=== PATIENT | male | born 1935 | race Caucasian/White ===

== ENCOUNTER 2017-05-22 12:13 | Inpatient (IN) | payer OTHER, MEDICARE ==
--- NOTE | 2017-05-22 14:51 | EDPHY ---
H & P Stated Complaint: r hip pain nontraumatic/hx hip replacement years ago - Personal History Current Tetanus/Diphtheria Vaccine: Yes - Medical/Surgical History Hx Asthma: No Hx Chronic Respiratory Disease: No Hx Diabetes: No Hx Cardiac Disease: No Hx Renal Disease: No Hx Cirrhosis: No Hx Alcoholism: No Hx HIV/AIDS: No Hx Splenectomy or Spleen Trauma: No Other PMH: Parkinsons, bilat hip replacement - Social History Smoking Status: Former smoker Time Seen by Provider: 05/22/17 14:38 HPI/ROS: CHIEF COMPLAINT: Right hip pain x5 days HISTORY OF PRESENT ILLNESS: 81-year-old male history of bilateral hip arthroplasty 20 years ago, lives with his in a multilevel farm house, arrives via private vehicle complaining of progressive right hip pain for the past 5 days. Progressive difficulty weight-bearing and perform activities of daily living. Pain is exacerbated with weight-bearing and range of motion. No trauma. He necessitated multiple family members to help him out of the house into a vehicle today. No lower extremity radiculopathy. No saddle anesthesia He denies: Fever, chills, flu-like symptoms, discoloration to the area. PRIMARY CARE PROVIDER:Dr. 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 Parkinson's disease SOCIAL HISTORY: Lives with his in a multilevel are mouth PHYSICAL EXAM (Prior to examination, patient consented to physical exam, hands were washed and my usual and customary physical exam procedures followed) 1) GENERAL: Well-developed, well-nourished, alert and oriented. Appears to be in no acute distress. 2) HEAD: Normocephalic, atraumatic 3) HEENT: Sclera anicteric. 4) NECK: Full range of motion, no meningeal signs. 5) LUNGS: Clear auscultation bilaterally, no wheezes, no rhonchi, no retractions. 6) HEART: Regular rate and rhythm, no murmur, no heave, no gallop. 7) ABDOMEN: No guarding, no rebound, no focal tenderness, 8) MUSCULOSKELETAL: Right lower extremity: Surgical site noted, no tenderness to palpation. Reproducible pain to the right inguinal region with range of motion of the femur on the acetabulum. No fluctuance. 9) BACK: No midline vertebral tenderness, no fluctuance, no step-off, no obvious trauma, no visual or palpable abnormality. Patella Achilles reflexes intact to bilateral strength 5/5. No foot drop. 10) SKIN: No rash, no petechiae. 11) Psychiatric: Patient is oriented X 3, there is no agitation. DIFFERENTIAL DIAGNOSIS: In no particular order including but not limited to septic arthritis, arthroplasty hardware failure, periprosthetic fracture (Yodit,Sheri Shruti) Constitutional: Initial Vital Signs Temperature (C) 36.3 C 05/22/17 12:20 Heart Rate 84 05/22/17 12:20 Respiratory Rate 18 05/22/17 12:20 Blood Pressure 139/112 H 05/22/17 12:20 O2 Sat (%) 95 05/22/17 12:20 O2 Delivery Mode Room Air Allergies/Adverse Reactions: No Known Allergies Allergy (Verified 05/22/17 12:19) Home Medications: Medication Instructions Recorded Carbidopa/Levodopa 25/100Mg 1 tab PO DAILY@2300 03/19/14 [Sinemet 25/100 MG (*)] Carbidopa/Levodopa 25/100Mg 1.5 tab PO BID@0700,1400 03/19/14 [Sinemet 25/100 MG (*)] Hydrocodone/APAP 5/325 [[place] 0.5 tab PO Q6 PRN #10 tab 05/22/17 5/325 (*)] Medical Decision Making - Diagnostics Imaging Results: Imaging Impressions Hip X-Ray 05/22/17 14:39 Impression: Negative. No acute fracture or dislocation. ED Course/Re-evaluation: 3:45 p.m.: The case management director and I had a lengthy discussion with the patient and his family members regarding safety to be discharged home. Patient lives with his at initially requested to be discharged home. He necessitated to ER technicians to get sit on the edge of the bed. At that point he agrees to be admitted the hospital which I think is appropriate decision time concerned about his ability to perform activities of daily living, concerned about his safety where he had to be discharged. Plan will be admission . 4:00 p.m.: Consulted with hospitalist Dr. Rosas who will admit patient. Care of patient under supervision of secondary supervising physician Dr Pat with whom I discussed case . (Sheri Monsivais) Other Provider: PHYSICIAN DOCUMENTATION: The patient was evaluated and managed by the Physician Credit Assistant and myself. I have reviewed the chart and agree with the findings and plan of care as documented. In addition, I examined the patient myself at 1612. History confirmed as nontraumatic worsening right hip pain unable to walk. Physical findings as follows: Able to lift right leg off the bed, normal motor and sensory in both feet, normal perfusion both the feet. Admission for further evaluation is unable to walk. I am the secondary supervising physician. (Ezio Pat) Departure - Departure Disposition: [facility] Inpatient Acute Clinical Impression: Atraumatic right hip pain, Unable to care for self Condition: Good
--- NOTE | 2017-05-22 16:18 | ASMTCMCOM ---
CM Note CM Note Notes: I was asked by ED DENISE Monsivais to see patient and his family. Patient came in with hip pain, also has a hx of Parkinson's. His xray was unremarkable, but there is concern about whether patient can be safe at home (lives in a farmhouse with 13 stairs). After much deliberation with patient, , and sister, we determined that patient needs admission for further workup and safety eval. Although he did have appointments with his PCP Dr Liseth Lee and neurologist Dr Marilee Wesley tomorrow, as well as a PT appointment, his pain was prohibiting him from ambulating in the ED. I called both doctors and cancelled the appointments. Patient's will go home to get him some belongings and medications. Date Signed: 05/22/2017 04:17 PM Electronically Signed By:Katherin Trejo RN
--- NOTE | 2017-05-22 16:19 | ASMTLACE ---
[place] Acuity / Level of Answers: Yes Care: Did the patient have an inpatient admission? # of Emergency department Answers: 0 visits in the last 6 months Score: 3 Date Signed: 05/22/2017 04:18 PM Electronically Signed By:Katherin Trejo RN
[2017-05-22 16:24] LABS: PLATELET COUNT 133 10^3/uL (150-400)
[2017-05-22] MEDS ORDERED: ONDANSETRON 4 MG/2 ML VIAL IVP PRN (17:20)
[2017-05-22] MEDS ORDERED: ONDANSETRON DISINTEGRATING 4 MG TAB PO PRN (17:20)
--- NOTE | 2017-05-22 17:27 | PDGENHP ---
History and Physical - Chief Complaint Right hip pain - History of Present Illness 81-year-old male history of bilateral hip arthroplasty 20 years ago, p/w 5 day hx of right sided hip pain. He recently worked with PT and family is wondering if this would have aggravated it. He has difficulty weight-bearing and perform activities of daily living. Pain is exacerbated with weight-bearing and range of motion. No trauma. He necessitated multiple family members to help him out of the house into a vehicle today. No lower extremity radiculopathy. No saddle anesthesia He denies: Fever, chills, flu-like symptoms, discoloration to the area. 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 Parkinson's disease SOCIAL HISTORY: Lives with his in a [facility] FmHx: [place] History Information - Allergies/Home Medication List Allergies/Adverse Reactions: No Known Allergies Allergy (Verified 05/22/17 12:19) Home Medications: Carbidopa/Levodopa 25/100Mg [Sinemet 25/100 MG (*)] 1 tab PO DAILY@2300 [Last Taken Unknown] Carbidopa/Levodopa 25/100Mg [Sinemet 25/100 MG (*)] 1.5 tab PO BID@0700,1400 [Last Taken Unknown] I have personally reviewed and updated: medical history, social history - Social History Smoking Status: Former smoker Review of Systems Review of Systems: ROS: 10pt was reviewed & negative except for what was stated in HPI & below Physical Exam Physical Exam: Temp Pulse Resp BP Pulse Ox 36.3 C 66 16 147/81 H 95 05/22/17 12:20 05/22/17 16:43 05/22/17 16:43 05/22/17 16:43 05/22/17 16:43 Constitutional: no apparent distress Eyes: PERRL, EOMI Ears, Nose, Mouth, Throat: moist mucous membranes Cardiovascular: regular rate and rhythym Respiratory: no respiratory distress, no rales or rhonchi Gastrointestinal: normoactive bowel sounds, soft, non-tender abdomen Skin: warm Musculoskeletal: full muscle strength Neurologic: AAOx3 Psychiatric: interacting appropriately, not anxious, not encephalopathic Lymph, Heme, Immunologic: No petechiae Lab Data & Imaging Review 05/22/17 16:05 05/22/17 16:05 WBC 5.04 10^3/uL (3.80-9.50) 05/22/17 16:05 RBC 5.04 10^6/uL (4.40-6.38) 05/22/17 16:05 Hgb 15.2 g/dL (13.7-17.5) 05/22/17 16:05 Hct 43.0 % (40.0-51.0) 05/22/17 16:05 MCV 85.3 fL (81.5-99.8) 05/22/17 16:05 MCH 30.2 pg (27.9-34.1) 05/22/17 16:05 MCHC 35.3 g/dL (32.4-36.7) 05/22/17 16:05 RDW 13.6 % (11.5-15.2) 05/22/17 16:05 Plt Count 133 10^3/uL (150-400) L 05/22/17 16:05 MPV 9.0 fL (8.7-11.7) 05/22/17 16:05 Neut % (Auto) 72.0 % (39.3-74.2) 05/22/17 16:05 Lymph % (Auto) 16.1 % (15.0-45.0) 05/22/17 16:05 Grayson % (Auto) 8.9 % (4.5-13.0) 05/22/17 16:05 Eos % (Auto) 2.0 % (0.6-7.6) 05/22/17 16:05 Baso % (Auto) 0.4 % (0.3-1.7) 05/22/17 16:05 Nucleat RBC Rel Count 0.0 % (0.0-0.2) 05/22/17 16:05 Absolute Neuts (auto) 3.63 10^3/uL (1.70-6.50) 05/22/17 16:05 Absolute Lymphs (auto) 0.81 10^3/uL (1.00-3.00) L 05/22/17 16:05 Absolute Monos (auto) 0.45 10^3/uL (0.30-0.80) 05/22/17 16:05 Absolute Eos (auto) 0.10 10^3/uL (0.03-0.40) 05/22/17 16:05 Absolute Basos (auto) 0.02 10^3/uL (0.02-0.10) 05/22/17 16:05 Absolute Nucleated RBC 0.00 10^3/uL (0-0.01) 05/22/17 16:05 Immature Gran % 0.6 % (0.0-1.1) 05/22/17 16:05 Immature Gran # 0.03 10^3/uL (0.00-0.10) 05/22/17 16:05 Sodium 138 mEq/L (135-145) 05/22/17 16:05 Potassium 4.1 mEq/L (3.5-5.2) 05/22/17 16:05 Chloride 104 mEq/L (97-110) 05/22/17 16:05 Carbon Dioxide 27 mEq/l (22-31) 05/22/17 16:05 Anion Gap 7 mEq/L (8-16) L 05/22/17 16:05 BUN 16 mg/dL (7-23) 05/22/17 16:05 Creatinine 0.9 mg/dL (0.7-1.3) 05/22/17 16:05 Estimated GFR > 60 05/22/17 16:05 Glucose 77 mg/dL (70-100) 05/22/17 16:05 Calcium 9.0 mg/dL (8.5-10.4) 05/22/17 16:05 Assessment & Plan Assessment: #Right hip pain, hx of bilateral Arthroplasty 20 years ago #FTT #Acute pain syndrome #Parkinsons #GERD #Hx of L DVT, previously on Xarelto Plan: Admit Check MRI PT/OT Check US of LLE to r/o DVT Trial of PPI for reported GERD sx's check nutrition CM to see Lovenox for DVT proph Full Code Home meds/Parkinson meds once a list is available
[2017-05-22] MEDS ORDERED: IBUPROFEN 200 MG TAB PO PRN (17:52)
[2017-05-22] MEDS: PANTOPRAZOLE SODIUM 40 MG TAB PO SCH (18:53)
[2017-05-22] MEDS: CARBIDOPA/LEVO CR 25 MG/100 MG TAB PO SCH ×2 (18:54→21:54)
[2017-05-23 04:30] LABS: PLATELET COUNT 124 10^3/uL (150-400)
[2017-05-23] MEDS: CARBIDOPA/LEVO CR 25 MG/100 MG TAB PO SCH ×4 (10:05→21:47)
[2017-05-23] MEDS: PANTOPRAZOLE SODIUM 40 MG TAB PO SCH (10:05)
[2017-05-23] MEDS: ACETAMINOPHEN 325 MG TAB PO PRN ×2 (10:15→21:56)
[2017-05-23] MEDS: ENOXAPARIN 40 MG/0.4 ML SYR SC SCH (10:18)
--- NOTE | 2017-05-23 13:33 | ASMTCMCOM ---
CM Note CM Note Notes: Chart reviewed for dc planning purposes. Therapies are recommending SNF. Met with patient to discussed possiblity of SNF . He adamantly refuses at this point in time. Hoping to meet with his family at some point today. Lives with his and daughter. CM to follow. Date Signed: 05/23/2017 01:32 PM Electronically Signed By:Hilary Rodas RN
--- NOTE | 2017-05-23 13:44 | PDMN ---
Medical Necessity Medical necessity: Pt meets IP criteria per MD; est los >2 mn for eval/tx of R- sided hip pain w/failure to thrive; pt unable to care for self; admit for further monitoring, therapies & dc planning; comorbid advanced age & Parkinsons ; per H&P & order 05/22/17
--- NOTE | 2017-05-23 15:25 | HOSPPROG ---
Hospitalist Progress Note Assessment/Plan: #Right hip pain: suspect musk in nature. Effusion on MRI, but no signs/symptoms of infection. Treat pain with APAP. Discussed case with Pamela Owens ( Master's PA) who recommended conservative treatment -PT evaluated and rec SNF. Patient is declining, will readdress with family #Parkinson's: Carbidopa #Diet: regular #Disp: warrants inpatient admission for further PT/OT Subjective: pain in right hip. No fevers Objective: Vital Signs Temp Pulse Resp BP Pulse Ox 36.5 C 88 17 123/86 H 94 05/23/17 12:37 05/23/17 12:37 05/23/17 12:37 05/23/17 12:37 05/23/17 12:37 Laboratory Results 05/23/17 04:10 05/23/17 04:10 05/22/17 05/23/17 05/24/17 05:59 05:59 05:59 Intake Total 250 Balance 250 - Physical Exam Constitutional: no apparent distress Eyes: PERRL Ears, Nose, Mouth, Throat: moist mucous membranes Cardiovascular: regular rate and rhythym, no murmur, rub, or gallop Respiratory: no respiratory distress, no rales or rhonchi Gastrointestinal: normoactive bowel sounds, soft, non-tender abdomen Genitourinary: no bladder fullness Musculoskeletal: other (right hip with mild effusion. No warmth or redness. Full ROM, no pain with external/internal rotation) Neurologic: AAOx3, CN II-XII Intact Psychiatric: interacting appropriately ICD10 Worksheet Patient Problems: Problems Problem Status Onset Influenza A Acute
[2017-05-24] MEDS: CARBIDOPA/LEVO CR 25 MG/100 MG TAB PO SCH ×4 (08:27→21:58)
[2017-05-24] MEDS: PANTOPRAZOLE SODIUM 40 MG TAB PO SCH (08:27)
[2017-05-24] MEDS: ENOXAPARIN 40 MG/0.4 ML SYR SC SCH (08:27)
[2017-05-24] MEDS: ACETAMINOPHEN 325 MG TAB PO PRN ×2 (09:04→21:59)
[2017-05-24] MEDS: LIDOCAINE 4%/MENTHOL 1% PATCH TD SCH (11:24)
--- NOTE | 2017-05-24 12:45 | HOSPPROG ---
Hospitalist Progress Note Assessment/Plan: 81-year-old admitted with hip pain. There is no obvious injury it was just increased pain to a point where he was unable to ambulate at home and was brought into the ER for further evaluation. He does have a history of Parkinson 's disease and has started doing more physical therapy for that recently. MRI was done on admission that showed no obvious injury he has had a previous hip arthroplasty and a moderate effusion present # hip pain. MRI reviewed. Unclear etiology of his pain and less it is purely just inflammation. No obvious signs of infection, he has a normal white count no fevers and does not appear ill. * Continue physical therapy, patient refusing skilled rehab * reviewed MRI with Dr. Owens. 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 (the plastic wears out and causes an inflammatory reaction.) rec: follow up with a total joint surgeon. # Parkinson's disease: Primarily symptoms include dysphagia and dysarthria and fatigue and stiffness without a lot of tremor. * Continue current therapy Disposition: Patient will go home with either home care or outpatient PT, they have recommended skilled rehab but the patient is refusing Subjective: Patient new to me and chart reviewed. Spent greater than 35 min with family greater than 50% counseling discussing patient's course. He currently complains of ongoing hip pain it is unclear if it is better or not although he says he is able to ambulate better than when he 1st came to the hospital. Objective: Vital Signs Temp Pulse Resp BP Pulse Ox 35.7 C L 70 16 136/88 H 94 05/24/17 11:13 05/24/17 11:13 05/24/17 11:13 05/24/17 11:13 05/24/17 11:13 Laboratory Results 05/23/17 04:10 05/24/17 04:42 05/23/17 05/24/17 05/25/17 05:59 05:59 05:59 Intake Total 250 1900 Output Total 1250 Balance 250 650 - Physical Exam Constitutional: no apparent distress, chronically ill appearing Eyes: PERRL Ears, Nose, Mouth, Throat: moist mucous membranes Cardiovascular: regular rate and rhythym Respiratory: no respiratory distress Gastrointestinal: normoactive bowel sounds Genitourinary: other (Condom cath) Skin: warm Musculoskeletal: pain with ROM (Hip), generalized weakness, No joint tenderness Neurologic: AAOx3, No facial droop Psychiatric: interacting appropriately ICD10 Worksheet Patient Problems: Problems Problem Status Onset Influenza A Acute
--- NOTE | 2017-05-24 16:44 | ASMTCMCOM ---
CM Note CM Note Notes: would like Varghese to meet with Pt. and family today to discuss Pt's plan for d/c. As of yesterday, Pt. wanted to go home without rehab or home care services. PT and OT recommending SNF. Today Varghese met with Pt, , and friend in room. came in for part of meeting. After our discussion of options and Pt's wishes, Pt. called Jhonyr back into room and agreed to have homecare PT and OT. Pt. would like Parkinson's-specific home PT and OT. Pt. is very involved in the Parkinson's community and goes to a regular support group. Referred Pt. to [facility] due to their Parkinson's program. Mini at [facility] plans to take Pt. Referral made through [employer]. Also printed out information for Pt. on [employer] who is a leading local Parkinson's exercise guru who himself has Parkinsons. Plan: [facility] homecare with PT and OT focusing on Parkinson's exercises per Pt. Date Signed: 05/24/2017 04:44 PM Electronically Signed By:Noy Woods LCSW
[2017-05-24] MEDS: PATCH REMOVAL 1 EA PATCH TD SCH (22:00)
[2017-05-25] MEDS: ACETAMINOPHEN 325 MG TAB PO PRN ×2 (08:35→21:54)
[2017-05-25] MEDS: ENOXAPARIN 40 MG/0.4 ML SYR SC SCH (08:35)
[2017-05-25] MEDS: CARBIDOPA/LEVO CR 25 MG/100 MG TAB PO SCH ×4 (08:35→22:55)
[2017-05-25] MEDS: LIDOCAINE 4%/MENTHOL 1% PATCH TD SCH (08:35)
[2017-05-25] MEDS: PANTOPRAZOLE SODIUM 40 MG TAB PO SCH (08:35)
--- NOTE | 2017-05-25 12:31 | HOSPPROG ---
Hospitalist Progress Note Assessment/Plan: 81-year-old admitted with hip pain. There is no obvious injury it was just increased pain to a point where he was unable to ambulate at home and was brought into the ER for further evaluation. He does have a history of Parkinson 's disease and has started doing more physical therapy for that recently. MRI was done on admission that showed no obvious injury he has had a previous hip arthroplasty and a moderate effusion present # hip pain. MRI reviewed MRI with Dr. Owens. 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 (the plastic wears out and causes an inflammatory reaction.) rec: follow up with a total joint surgeon. * Continue to discuss possible skilled rehab * Will add low-dose Vicodin and Celebrex today if renal function normal * High risk for steroid injection into a total joint # Parkinson's disease: Primarily symptoms include dysphagia and dysarthria and fatigue and stiffness without a lot of tremor. * Continue current therapy Disposition: Patient now considering skilled rehab at the request of his family Subjective: Pain mainly when he is ambulating, comfortable at rest Objective: Vital Signs Temp Pulse Resp BP Pulse Ox 36.4 C 72 16 127/85 H 95 05/25/17 11:45 05/25/17 11:45 05/25/17 11:45 05/25/17 11:45 05/25/17 11:45 Laboratory Results 05/23/17 04:10 05/24/17 04:42 05/24/17 05/25/17 05/26/17 05:59 05:59 05:59 Intake Total 1900 450 Output Total 1250 900 Balance 650 -450 - Time Spent With Patient Time Spent with Patient: greater than 35 minutes (Discussed treatment options with family and patient) Time Spent with Patient: Greater than 35 minutes spent on this patients care, greater than 50% of time spent counseling, educating, and coordinating care regarding the above mentioned plan. - Physical Exam Constitutional: chronically ill appearing Psychiatric: interacting appropriately, not anxious ICD10 Worksheet Patient Problems: Problems Problem Status Onset Influenza A Acute
[2017-05-25] MEDS ORDERED: HYDROCODONE/APAP 5/325 TAB PO PRN (12:32)
--- NOTE | 2017-05-25 14:33 | ASMTCMCOM ---
CM Note CM Note Notes: Spoke with MD; pt now interested in discharging to SNF; anticipate dc tomorrow. Met with pt & his family to discuss. Pt states he would like to go to [facility]; he has been there before & takes outpatient Parkinson's classes there currently. Spoke with Soniya, at [facility]; may have bed available tomorrow. Referral sent; awaiting response. CM will continue to follow. Date Signed: 05/25/2017 02:32 PM Electronically Signed By:Jacqueline Edge RN
[2017-05-25] MEDS: KETOROLAC 15 MG/1 ML SDV IVP SCH (18:23)
[2017-05-25] MEDS: PATCH REMOVAL 1 EA PATCH TD SCH (22:05)
[2017-05-26] MEDS: KETOROLAC 15 MG/1 ML SDV IVP SCH ×3 (01:56→12:56)
[2017-05-26 04:54] LABS: PLATELET COUNT 142 10^3/uL (150-400)
[2017-05-26] MEDS: PANTOPRAZOLE SODIUM 40 MG TAB PO SCH (09:58)
[2017-05-26] MEDS: ENOXAPARIN 40 MG/0.4 ML SYR SC SCH (09:58)
[2017-05-26] MEDS: CARBIDOPA/LEVO CR 25 MG/100 MG TAB PO SCH ×2 (09:58→12:56)
[2017-05-26] MEDS: LIDOCAINE 4%/MENTHOL 1% PATCH TD SCH (09:58)
--- NOTE | 2017-05-26 10:24 | PDIAF ---
- Diagnosis Code Status: Full Code - Medication Management Discharge Medications: Medications to Continue on Transfer Carbidopa/Levo Cr 25/100Mg [Sinemet CR 25/100 MG (*)] 2 tab PO QID@08,13,19,23 05/22/17 [Last Taken 05/22/17 13:00] Acetaminophen [Tylenol 325mg (*)] 650 mg PO Q4HRS PRN tab 05/26/17 [Last Taken Unknown] Lidocaine 4%/Menthol 1% [Icy Hot Lidocaine/Menthol 4%/1% Patch (*)] 1 patch TD DAILY patch 05/26/17 [Last Taken Unknown] Pantoprazole Sodium [Protonix 40mg (*)] 40 mg PO DAILY tab 05/26/17 [Last Taken Unknown] Patch Removal 1 ea TD DAILY21 patch 05/26/17 [Last Taken Unknown] celeCOXIB [Celecoxib] 200 mg PO DAILY #1 capsule 05/26/17 [Last Taken Unknown] Discharge Medications: Refer to the Discharge Home Medication list for PRN reason. - Orders Services needed: Registered Nurse, Certified Emanations Analysis Technician, Master Mixer Runner , Physical Therapy, Occupational Therapy Isolation Type: None Diet Recommendation: no restrictions on diet Diet Texture: Regular Texture Diet - Labs/Radiology BMP Date: 06/02/17 - Follow Up Care Current Providers and Referrals: Liseth Lee MD [Primary Care Provider] -
--- NOTE | 2017-05-26 10:36 | ASMTCMCOM ---
CM Note CM Note Notes: Patient medically cleared for discharge to [facility] in [place]. He will have a semi-private room and be on the waitlist for a private room. His is aware. [facility] to arrange transport. Final orders via allscripts. Awaiting transport time and will alert RN and ask her to call report. CM available if other needs arise. Date Signed: 05/26/2017 10:35 AM Electronically Signed By:Hilary Rodas RN
--- NOTE | 2017-05-26 10:39 | GDS ---
[f rep st] DISCHARGE SUMMARY DIAGNOSES: 1. 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 Patient to follow up with joint specialist as an outpatient. 2. Parkinson disease, stable. 3. Remote history of influenza A. Currently not infectious, nor has he had it recently. 4. Deconditioning. PROCEDURES DONE: 1. Lower extremity ultrasound, negative for DVT. 2. 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 CONSULTATIONS: None. HOSPITAL COURSE: The patient is an 81-year-old man with a history of Parkinson disease. He was part icipating in physical therapy. He had increasing pain in his right hip. He was to a point where the pain was so severe he was having more difficulty ambulating, so he was admitted to the hospital due to his disability and increased fall risk. He had an MRI, which revealed bilateral joint replacement s in the hip with moderate effusion on the right, but no evidence of infection. 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 He was started on anti-inflammatories with significant improvement in his pain, but he is decond itioned and will need inpatient rehab. CONDITION ON DISCHARGE: Good. Vital signs have been stable. He is up ambulating. He is alert. DISCHARGE MEDICATIONS: Please see discharge medication form. He will be started on Celebrex for ant i-inflammation but should get a metabolic panel done within a week to make sure he is having no evide nce of kidney issues. He needs to stay hydrated. FOLLOWUP INSTRUCTIONS: He will be discharged to [facility] for physical therapy and rehab , and he and his family will make an appointment with an orthopedist as an outpatient. Total time spent with patient on day of discharge and coordination of care is 35 minutes. /[id number]/MODL
[2017-05-26 15:16] VITALS: RESP 18
[2017-05-26 16:21] VITALS: BP 129/89; PULSE 97; TEMP 98.9; O2SAT 94
--- NOTE | 2017-05-26 17:05 | ASDISCHSUM ---
Discharge Information Plan Status:SNF Medically Cleared to Leave:05/25/2017 Discharge Date:05/26/2017 04:32 PM D/C Disposition:Care Home Facility ADT D/C Disposition:Care Home Facility Projected Discharge Date:05/26/2017 11:00 AM Transportation at D/C:Wheelchair Van Discharge Delay Reason: Follow-Up Date:05/26/2017 11:00 AM Discharge Slot: Final Diagnosis: Placement Information Referral Type:*Home Health Care Services Referral ID:[id number] Provider Name: Address 1: Phone Number: Address 2: Fax Number: City: Selection Factors: State: Referral Type:*Mcfp/SNF Referral ID:[id number] Provider Name:[facility] Address 1:[facility] Address 2: City:[place] Selection Factors: State:[place] Patient Contact Information Contact Name:MARLENEMARLIN Relationship: Address:[address] Work Phone: City:[place] Alternate Phone: State/Zip Code:[place] [address] Email: Financial Information Financial Class:Medicare Primary Plan Desc:MEDICARE INPATIENT Primary Plan Number:[id number] Secondary Plan Desc:AARP/MDR SUPPLEMENT Secondary Plan Number:[id number] Assessment Information [facility] CM Progress Note CM Note CM Note Notes: I was asked by ED DENISE Monsivais to see patient and his family. Patient came in with hip pain, also has a hx of Parkinson's. His xray was unremarkable, but there is concern about whether patient can be safe at home (lives in a farmhouse with 13 stairs). After much deliberation with patient, , and sister, we determined that patient needs admission for further workup and safety eval. Although he did have appointments with his PCP Dr Liseth Lee and neurologist Dr Marilee Wesley tomorrow, as well as a PT appointment, his pain was prohibiting him from ambulating in the ED. I called both doctors and cancelled the appointments. Patient's will go home to get him some belongings and medications. Date Signed: 05/22/2017 04:17 PM Electronically Signed By:Katherin Trejo RN LACE LACE Acuity / Level of Answers: Yes Care: Did the patient have an inpatient admission? # of Emergency department Answers: 0 visits in the last 6 months Score: 3 Date Signed: 05/22/2017 04:18 PM Electronically Signed By:Katherin Trejo RN [facility] CM Progress Note CM [place] CM Note Notes: Chart reviewed for dc planning purposes. Therapies are recommending SNF. Met with patient to discussed possiblity of SNF . He adamantly refuses at this point in time. Hoping to meet with his family at some point today. Lives with his and daughter. CM to follow. Date Signed: 05/23/2017 01:32 PM Electronically Signed By:Hilary Rodas RN [facility] CM Progress Note CM Note CM Note Notes: would like SWekaren to meet with Pt. and family today to discuss Pt's plan for d/c. As of yesterday, Pt. wanted to go home without rehab or home care services. PT and OT recommending SNF. Today Varghese met with Pt, , and friend in room. came in for part of meeting. After our discussion of options and Pt's wishes, Pt. called SWer back into room and agreed to have homecare PT and OT. Pt. would like Parkinson's-specific home PT and OT. Pt. is very involved in the Parkinson's community and goes to a regular support group. Referred Pt. to [facility] due to their Parkinson's program. Mini at [facility] plans to take Pt. Referral made through [employer]. Also printed out information for Pt. on [employer] who is a leading local Parkinson's exercise guru who himself has Parkinsons. Plan: [facility] homecare with PT and OT focusing on Parkinson's exercises per Pt. Date Signed: 05/24/2017 04:44 PM Electronically Signed By:Noy Woods LCSW [facility] CM Progress Note CM Note CM Note Notes: Spoke with MD; pt now interested in discharging to SNF; anticipate dc tomorrow. Met with pt & his family to discuss. Pt states he would like to go to [facility]; he has been there before & takes outpatient Parkinson's classes there currently. Spoke with Soniya, at [facility]; may have bed available tomorrow. Referral sent; awaiting response. CM will continue to follow. Date Signed: 05/25/2017 02:32 PM Electronically Signed By:Jacqueline Edge RN [facility] CM Progress Note CM Note CM Note Notes: Patient medically cleared for discharge to [facility] in [place]. He will have a semi-private room and be on the waitlist for a private room. His is aware. [facility] to arrange transport. Final orders via allscripts. Awaiting transport time and will alert RN and ask her to call report. CM available if other needs arise. Date Signed: 05/26/2017 10:35 AM Electronically Signed By:Hilary Rodas RN Intervention Information Intervention Type:*IM-Signed Date of Service:05/26/2017 01:57 PM Patient Type:Inpatient Staff Member:Lauryn Caro Hours: Discipline: Severity: Comment:
== END 2017-05-26 16:32 | DRG 561 ==
LOC: OBSVTOIN 16:00 → F1N 16:43
PROVIDERS: ADMIT Family Medicine; ATTEND Family Medicine
DX: T84.84XA Pain due to internal orthopedic prosthetic devices, implants and grafts, initial encounter (principal); T84.090A Other mechanical complication of internal right hip prosthesis, initial encounter; R62.7 Adult failure to thrive; G89.29 Other chronic pain; G20 Parkinson's disease; M25.451 Effusion, right hip; K21.9 Gastro-esophageal reflux disease without esophagitis; Z86.718 Personal history of other venous thrombosis and embolism; Z79.01 Long term (current) use of anticoagulants
CPT/HCPCS: 84134-90; 97110-GP; 97116-GP; 97162-GP; 97166-GO; 97530-GP; 97535-GO; G8978-GP-CJ; G8979-GP-CI; G8987-GO-CJ; G8988-GO-CI; G8989-GO-CJ; J1650; J1885

== ENCOUNTER 2017-07-13 22:55 | Inpatient (IN) | payer OTHER, MEDICARE ==
--- NOTE | 2017-07-13 23:02 | EDPHY ---
H & P Time Seen by Provider: 07/13/17 23:02 HPI/ROS: Chart Made in Error. Please MANSI WALKER's Chart. Source: Patient - Medical/Surgical History Hx Asthma: No Hx Chronic Respiratory Disease: No Hx Diabetes: No Hx Cardiac Disease: No Hx Renal Disease: No Hx Cirrhosis: No Hx Alcoholism: No Hx HIV/AIDS: No Hx Splenectomy or Spleen Trauma: No Other PMH: Parkinsons, bilat hip replacement - Social History Smoking Status: Former smoker Constitutional: Initial Vital Signs Temperature (C) 36.3 C 07/13/17 23:20 Heart Rate 67 07/13/17 23:20 Respiratory Rate 16 07/13/17 23:20 Blood Pressure 137/88 H 07/13/17 23:20 O2 Sat (%) 94 07/13/17 23:20 O2 Delivery Mode Room Air Allergies/Adverse Reactions: No Known Allergies Allergy (Verified 05/22/17 12:19) Home Medications: Medication Instructions Recorded Carbidopa/Levo Cr 25/100Mg 2 tab PO QID@,,,05/22/17 [Sinemet CR 25/100 MG (*)] Lidocaine 4%/Menthol 1% [Icy Hot 1 patch TD DAILY patch 05/26/17 Lidocaine/Menthol 4%/1% Patch (*)] celeCOXIB [Celecoxib] 200 mg PO DAILY #1 capsule 05/26/17 Cholecalciferol Vit D3 [Vitamin D3 1,000 units PO DAILY 07/14/17 (*)] Cyanocobalamin [Vitamin B12 (*)] 1,000 mcg PO DAILY 07/14/17 Omeprazole 20 mg PO DAILY 07/14/17 Medical Decision Making - Data Points Laboratory Results: Laboratory Results 07/13/17 23:30 07/13/17 23:30 Medications Given: Acetaminophen (Tylenol) 650 mg PO Q4HRS PRN PRN Reason: Pain, Mild/Fever, Can Take PO Stop: 01/10/18 01:45 Last Admin: 07/14/17 20:28 Dose: 650 mg Carbidopa/Levodopa (Sinemet Cr) 2 tab PO QID@,,, ERVIN Stop: 01/10/18 12:59 Last Admin: 07/14/17 23:10 Dose: 2 tab Celecoxib (Celebrex) 200 mg PO DAILY ERVIN Stop: 01/10/18 14:44 Last Admin: 07/14/17 17:42 Dose: 200 mg Enoxaparin Sodium (Lovenox) 40 mg SC DAILY ERVIN Stop: 01/10/18 08:59 Last Admin: 07/14/17 07:58 Dose: 40 mg Sodium Chloride (Ns) 1,000 mls @ 75 mls/hr IV CONT ERVIN Stop: 01/10/18 01:59 Last Admin: 07/14/17 02:10 Dose: 1,000 mls Miscellaneous Information (Patch Removal) 1 ea TD DAILY21 ERVIN Stop: 01/10/18 20:59 Last Admin: 07/14/17 20:29 Dose: 1 ea Miscellaneous Medication (Icy Hot Lidocaine/Menthol 4%/1% Patch) 1 patch TD DAILY ERVIN Stop: 01/10/18 08:59 Last Admin: 07/14/17 07:59 Dose: 1 patch Departure - Departure Disposition: [facility] Inpatient Acute Clinical Impression: Skin tear of left hand without complication, Sprain of right shoulder, Closed right hip fracture Condition: Good
--- NOTE | 2017-07-13 23:28 | CPEKG ---
Heart Rate: 70 RR Interval: 857 P-R Interval: 168 QRSD Interval: 80 QT Interval: 380 QTC Interval: 410 P [place]: 61 QRS [place]: -29 T Wave [place]: 12 EKG Severity - ABNORMAL ECG - EKG Impression: SINUS RHYTHM EKG Impression: PROBABLE INFERIOR INFARCT, AGE INDETERMINATE Electronically Signed By: Ky Choudhury 14-Jul-2017 07:18:38
--- NOTE | 2017-07-13 23:28 | EDPHY ---
H & P Time Seen by Provider: 07/13/17 23:02 HPI/ROS: CHIEF COMPLAINT: Near syncope HISTORY OF PRESENT ILLNESS: 81-year-old male presents to the emergency department by ambulance after having a near syncopal episode. The patient is a [place] and was outside working all day and then came inside his home and walked up a flight of stairs and apparently was feeling lightheaded and dizzy. He had a near syncopal episode. He grabbed the railing of the stairs and then lowered himself to the ground. He sustained injury to his left hand in his right shoulder. He does not think that he lost consciousness. He denies a headache. Denies chest pain or difficulty breathing. He does have a history of Parkinson's disease. He states that his primary care provider has been changing his medications. REVIEW OF SYSTEMS: Constitutional: No fever, no chills. Eyes: No double or blurry vision. ENT: No sore throat. Respiratory: No cough, no shortness of breath. Cardiac: No chest pain. Gastrointestinal: No abdominal pain, vomiting or diarrhea. Genitourinary: No dysuria. Musculoskeletal: No neck or back pain. Skin: Skin tear left hand. No rashes. Neurological: No headache. Past Medical/Surgical History: Parkinson's disease, bilateral hip replacement, chronic hip pain Social History: lives with his independently Smoking Status: Former smoker Physical Exam: General Appearance: Alert, no distress. 137/88 Eyes: Pupils equal and round. Extraocular motions are all intact. ENT: Mouth: Mucous membranes moist. Respiratory: No wheezing, rhonchi, or rales, lungs are clear to auscultation. Cardiovascular: Regular rate and rhythm. Gastrointestinal: Abdomen is soft and nontender, no masses, no rebound or guarding, bowel sounds normal. Neurological: Alert and oriented x 3, cranial nerves II through XII grossly intact Skin: Skin tears noted to the dorsal aspect of his left hand. No suturable lacerations noted. Warm and dry, no rashes. Musculoskeletal: Nontender to palpate along the cervical, thoracic or lumbar spine. Neck is supple. Extremities: The patient is able to flex both of his knees. He is unable to lift his left ribs right leg secondary to his chronic bilateral hip pain. He has no abrasions noted to his lower extremities. He has pain with range of motion of the right shoulder. He has some mild pain with palpation to the right humeral head. He has full range of motion of his hands. Psychiatric: Patient is oriented X 3, there is no agitation. Constitutional: Initial Vital Signs Temperature (C) 36.3 C 07/13/17 23:20 Heart Rate 67 07/13/17 23:20 Respiratory Rate 16 07/13/17 23:20 Blood Pressure 137/88 H 07/13/17 23:20 O2 Sat (%) 94 07/13/17 23:20 O2 Delivery Mode Room Air Allergies/Adverse Reactions: No Known Allergies Allergy (Verified 05/22/17 12:19) Home Medications: Medication Instructions Recorded Carbidopa/Levo Cr 25/100Mg 2 tab PO QID@,,,23 05/22/17 [Sinemet CR 25/100 MG (*)] Lidocaine 4%/Menthol 1% [Icy Hot 1 patch TD DAILY patch 05/26/17 Lidocaine/Menthol 4%/1% Patch (*)] celeCOXIB [Celecoxib] 200 mg PO DAILY #1 capsule 05/26/17 Cholecalciferol Vit D3 [Vitamin D3 1,000 units PO DAILY 07/14/17 (*)] Cyanocobalamin [Vitamin B12 (*)] 1,000 mcg PO DAILY 07/14/17 Omeprazole 20 mg PO DAILY 07/14/17 Medical Decision Making - Diagnostics Imaging Results: Imaging Impressions Shoulder X-Ray 07/13/17 23:25 Impression: Negative. No acute fracture. Hip X-Ray 07/13/17 23:34 Impression: Acute nondisplaced proximal right femoral fracture. No evident loosening of the right femoral arthroplasty component. X-rays of the right hip reveal right greater trochanteric hip fracture. This is new compared with study from 05/22/2017. This was reviewed by myself the PAC system as well as discussed with the radiologist, Dr. Manoj Camilo. Imaging: Discussed imaging studies w/ outbound call center representative Radiologist, I viewed and interpreted images myself ED Course/Re-evaluation: A 81-year-old male presents to the emergency department after having a near syncopal episode. Laboratory studies are unremarkable. Patient had x-rays obtained of the right shoulder which revealed degenerative changes without fracture. X-rays of his right hip and pelvis reveal new greater trochanteric fracture compared with previous study from 05/22/2017. The patient will be admitted to Dr. Glover. The on-call orthopedic surgeon has been paged as requested by Dr. Glover. 12:15 a.m.: I spoke with Dr. Clifton Jennings, on-call orthopedic surgeon, who will come to evaluate the patient tomorrow afternoon. He said that it is fine that the patient can eat and drink. He will discuss options with the family including conservative therapy without surgery but nonweightbearing versus possible additional surgery or hardware placement. Skin tear to the dorsal aspect of his left hand has been thoroughly cleansed and dressed. The case was discussed with Dr. Ky Choudhury, secondary supervising physician , who did not directly evaluate the patient but agrees with treatment and plan. Differential Diagnosis: Syncope including but not limited to vasovagal syncope, arrhythmia, dehydration , and blood loss. Hip pain including but not limited to fracture, dislocation, contusion, sprain - Data Points Laboratory Results: Laboratory Results 07/13/17 23:30 07/13/17 23:30 Medications Given: Acetaminophen (Tylenol) 650 mg PO Q4HRS PRN PRN Reason: Pain, Mild/Fever, Can Take PO Stop: 01/10/18 01:45 Last Admin: 07/14/17 20:28 Dose: 650 mg Carbidopa/Levodopa (Sinemet Cr) 2 tab PO QID@08,13,18,23 ERVIN Stop: 01/10/18 12:59 Last Admin: 07/14/17 23:10 Dose: 2 tab Celecoxib (Celebrex) 200 mg PO DAILY ERVIN Stop: 01/10/18 14:44 Last Admin: 07/14/17 17:42 Dose: 200 mg Enoxaparin Sodium (Lovenox) 40 mg SC DAILY ERVIN Stop: 01/10/18 08:59 Last Admin: 07/14/17 07:58 Dose: 40 mg Sodium Chloride (Ns) 1,000 mls @ 75 mls/hr IV CONT ERVIN Stop: 01/10/18 01:59 Last Admin: 07/14/17 02:10 Dose: 1,000 mls Miscellaneous Information (Patch Removal) 1 ea TD DAILY21 ERVIN Stop: 01/10/18 20:59 Last Admin: 07/14/17 20:29 Dose: 1 ea Miscellaneous Medication (Icy Hot Lidocaine/Menthol 4%/1% Patch) 1 patch TD DAILY ERVIN Stop: 01/10/18 08:59 Last Admin: 07/14/17 07:59 Dose: 1 patch Departure - Departure Disposition: [facility] Inpatient Acute Clinical Impression: Skin tear of left hand without complication Qualifiers: Encounter type: initial encounter Qualified Code(s): S61.412A - Laceration without foreign body of left hand, initial encounter Sprain of right shoulder Qualifiers: Encounter type: initial encounter Shoulder sprain type: unspecified sprain Qualified Code(s): S43.401A - Unspecified sprain of right shoulder joint, initial encounter Closed right hip fracture Qualifiers: Encounter type: initial encounter Qualified Code(s): S72.001A - Fracture of unspecified part of neck of right femur, initial encounter for closed fracture Condition: Good
[2017-07-13 23:50] LABS: PLATELET COUNT 131 10^3/uL (150-400)
[2017-07-14] MEDS ORDERED: HYDROCODONE/APAP 5/325 TAB PO PRN (01:46)
[2017-07-14] MEDS ORDERED: ONDANSETRON 4 MG/2 ML VIAL IVP PRN (01:46)
[2017-07-14] MEDS ORDERED: HYDROmorphONE/DILAUDID 2 MG/ML INJ IVP PRN (01:46)
[2017-07-14] MEDS ORDERED: NS 1,000 ML IV SCH (02:00)
--- NOTE | 2017-07-14 03:42 | GHP ---
[f rep st] HISTORY AND PHYSICAL DATE OF ADMISSION: 07/14/2017 PRIMARY CARE PHYSICIAN: Currently unlisted. SOURCE: Patient provides history, appears reliable. His EMR was reviewed including recent hospital stay in May of 2017. Case discussed with ED provider. CHIEF COMPLAINT: Fall and hip pain on the right. HISTORY OF PRESENT ILLNESS: This is a very pleasant 81-year-old gentleman with past medical history significant for Parkinson's, GERD, hearing deficit, osteoarthritis of the hip, status post bilateral total hip arthroplasty, who presents to the emergency department today following a presyncopal episod e and fall with complaints of right shoulder, left hand, and right hip pain. Patient reports that he was recently discharged from [facility] facility after his discharge in May for chronic right hip pain. The patient did not have any acute fractures at that time, but it was noted that he had a right hip effusion. The patient went to intermediate for rehab and he slowly improved his overal l strength and was able to ambulate. The patient today reports that he may have overdone it. He is a [place] and was quite active all day without taking a break. He finished the end of the day, went u p the stairs, and developed lightheadedness with a presyncopal episode. The patient denies any head injury. He did ease himself to the floor, but he subsequently did have some left hand abrasion, righ t shoulder and right hip pain following this. EMS was called and patient brought into the ED. In the emergency department, patient was imaged. He was found to have an acute right intertrochanter ic fracture with a nondisplaced prosthesis. Patient with significant pain and spasming. No numbness or tingling noted. He denies any chest pain or palpitations. No shortness of breath. His lighthea dedness has since resolved. REVIEW OF SYSTEMS: GENERAL: No fevers, chills. SKIN: No rashes, sores. ENT: Patient without any complaints, nasal discharge, or sore throat. EYES: No acute changes in vision or ocular pain. Darling mendoza does have a history of cataract surgery. CV: Patient denies any chest pain, palpitations. RES PIRATORY: No shortness of breath or cough. GI: Patient denies any nausea, vomiting, abdominal pain , or diarrhea. : No dysuria or hematuria. Patient does report a history of some incontinence. M USCULOSKELETAL: Patient with Parkinson's, generalized debility and weakness which had been slowly im proving after stay at intermediate facility. NEURO: Patient with Parkinson tremor. No acute hea dache. No numbness, tingling. PSYCH: Negative for anxiety, depression. Remainder of review of sys tems negative except as noted above. ALLERGIES: No known drug allergies. HOME MEDICATIONS: Celebrex, lidocaine patch, Protonix, Sinemet 25/100, Tylenol p.r.n. PAST MEDICAL HISTORY: Significant for: 1. Parkinson disease. 2. Hearing deficit with use of hearing aids. 3. GERD. 4. History of thrombocytopenia. 5. History of daily alcohol consumption. 6. History of left DVT, previously on Xarelto, and subsequent chronic left lower extremity pitting e suki. 7. Chronic right hip pain, with history of bilateral hip arthroplasty and noted right hip effusion o n MRI recently in May. PAST SURGICAL HISTORY: Bilateral hip arthroplasty 20 years ago, bilateral cataract extraction with l ens placement, knee cap surgery in his youth. FAMILY HISTORY: Diabetes. No Parkinson's. SOCIAL HISTORY: Patient is , lives with his . He does not smoke. He drinks 1 to 2 bever ages per night. Patient reports that he used to drink more heavily and has since been cutting back. CODE STATUS: Full, but patient does not want any prolonged life support. PHYSICAL EXAMINATION: VITAL SIGNS: Upon arrival to the ED, blood pressure 137/88, heart rate of 67, respiratory rate 16, O2 saturation 94% on room air, temperature 36.3. Repeat vitals on the floor: Blood pressure is 161/99, heart rate 74, respiratory rate 21, O2 saturation 94% on room air, temperat ure 37.6. GENERAL: No acute distress. Very pleasant, elderly, frail-appearing gentleman, who is ly ing quietly in bed. HEAD: Normocephalic, atraumatic. EYES: Extraocular muscles are intact. Pupil s equal, round, react to light bilaterally and symmetric. No scleral icterus or conjunctival injecti on. Lens reflex appreciated bilateral eyes. ENT: Mucous membranes appear slightly dry. Patient do es have some dried blood around his nose on his upper lip. No active bleeding. No nasal discharge. NECK: Supple. Trachea midline. CV: Regular rate and rhythm. Slightly distant heart sounds. No murmurs, rubs, or gallops appreciated. RESPIRATORY: Lungs clear to auscultation bilaterally. No wh eezes, rales, or rhonchi appreciated. ABDOMEN: Positive bowel sounds. Soft. Nontender to palpatio n. No rebound, guarding, or masses appreciated. : No Hyde in place. No suprapubic tenderness t o palpation. EXTREMITIES: Patient without any cyanosis, clubbing, or edema appreciated bilaterally. 4/5 strength in the upper extremities. Limited exam, deferred on the right lower extremity. Patie nt is able to move his distal lower extremity on the right and generalized weakness on the left lower extremity. NEURO: Cranial nerves 2-12 are intact, symmetric bilaterally. Patient is awake, alert, and oriented x3. PSYCH: Thought process, content, and questions are appropriate. Patient does jennifer ears just slightly anxious but he is very cooperative and pleasant. LABORATORY STUDIES: WBCs 6.94, hemoglobin 13.9, hematocrit 41.5, MCV 87.9, platelet count 131, neutr ophil percent 83.6, no bands. Sodium is 143, potassium 4.1, chloride 107, CO2 is 28, anion gap 8, BU N 26, creatinine 0.9, GFR greater than 60, glucose 113, calcium is 8.8. Troponin is negative. EKG reviewed myself, showing sinus rhythm; low voltage; Q waves in the inferior leads, III, aVF; T-wa ve flattening in the anterior leads. No acute ST changes. QTc is 410, rate in the 70s, normal sinus rhythm. No previous EKGs were available for review. CT head: Atrophy. Negative for any acute findings. No bleed. Right hip x-ray reviewed myself, showing a fracture along the lateral trochanter, minimally displaced , and constipation. Right shoulder image reviewed, report is still pending. No acute fracture appreciated. Joint narrow ing. ASSESSMENT/PLAN: Very pleasant 81-year-old gentleman with history of Parkinson disease, generalized debility, and failure to thrive previously, who presents to the emergency department today following a near-syncopal episode and fall. 1. Right hip fracture. Orthopedic Surgery has been consulted and will plan to evaluate the patient in the morning. After discussion with the patient, he reports that he did have followup at [facility], but he cannot recall his surgeon. There were some concerns regarding failure of his hard ferrera and possible need for revision of his prosthesis. The patient will be made bed rest. There are no plans to take the patient to the OR at this time, so he will have a diet until further discussion with Orthopedic Surgery regarding best options for this patient. 2. Presyncope, possibly orthostasis. This patient had been active all day without stopping and had gotten to the top of the stairs versus less likely myocardial infarction or cerebrovascular accident. Unable to complete orthostatic blood pressures at this time as patient is on bed rest. He will rec eive some gentle IV fluid hydration as he does appear slightly dry. Dietary consult and monitor bloo d sugars. 3. Fall bed alarm. Bedrest. Await for plan of care before ordering PT/OT. 4. Debility. Patient was previously discharged to a fci. He does still appear quite weak overall. Plan as noted above. 5. Acute pain due to trauma. Dilaudid available p.r.n. We will try to avoid benzodiazepines unless patient should have some reason to need CIWA coverage given his age. The patient at this time is qu ite comfortable when he is at complete rest. Tylenol will also be available p.r.n. We will plan to continue patient's Lidoderm patches. 6. Chronic hip pain, as noted above. Holding Celebrex until patient is evaluated by Surgery and jarvis n is established. 7. Thrombocytopenia, persistent, chronic, likely related to patient's longstanding history of alcoho l consumption. We will check PT/INR in the morning. We will monitor platelet count and consideratio n for anticoagulation. 8. Parkinson disease. Resume patient's Sinemet when med rec is available. 9. Gastroesophageal reflux disease. Continue proton pump inhibitor when med rec available. 10. History of deep vein thrombosis. Patient will currently be immobilized even though his platelet s are slightly decreased. There are no plans to go to the OR and we will place the patient on prophy lactic Lovenox dosing. 11. Chronic lower extremity edema bilaterally but worse on the left leg. Patient reports that this is residual. Following his history of deep vein thrombosis, his leg has always been more swollen on the left since that time. He does have 2 to 3+ pitting on the right as well. No evidence of congest remigio heart failure. We will go back and try to see if patient had a recent echocardiogram, but this w ould be a consideration given patient's recent presyncopal episode and his lower extremity edema bila terally. 12. Chronic alcohol use. The patient reports he has been cutting back. He is now down to [address] inks per day. We will plan to monitor closely for any evidence of alcohol withdrawal and then initia te a CIWA protocol if needed. 13. Fluid, electrolyte, nutrition: Intravenous fluids. Dietary consult. Electrolyte monitoring, r eplacement if needed. Regular diet. 14. Prophylaxis: Sequential compression device to the left leg as patient complaining the right is painful. Lovenox as noted above. 15. Code status is full. Patient does not want prolonged life support. 16. Disposition: Patient has been admitted to inpatient status on the orthopedic floor. Anticipati ng greater than 2 midnights stay in setting of acute right hip fracture and need for intervention. /[id number]/MODL
[2017-07-14] MEDS: ACETAMINOPHEN 325 MG TAB PO PRN ×2 (04:48→20:28)
[2017-07-14 04:53] LABS: PLATELET COUNT 114 10^3/uL (150-400)
--- NOTE | 2017-07-14 07:07 | SOAPPROG ---
SOAP Progress Note Assessment/Plan: Assessment: s/p presyncopal episode right hip pain Plan: I am aware of consult xrays of pelvis demonstrate nondisplaced greater troch fx tdwb right lower ext and rom as tolerated will evaluate this patient this afternoon 07/14/17 07:06 Objective: Vital Signs Temp Pulse Resp BP Pulse Ox 37.1 C 77 19 151/76 H 96 07/14/17 03:35 07/14/17 03:35 07/14/17 03:35 07/14/17 03:35 07/14/17 03:35 Laboratory Results 07/14/17 04:29 07/14/17 04:29 07/13/17 07/14/17 07/15/17 05:59 05:59 05:59 Intake Total 1100 Balance 1100 ICD10 Worksheet Patient Problems: Problems Problem Status Onset Closed right hip fracture Acute Skin tear of left hand without complication Acute Sprain of right shoulder Acute Influenza A Acute
[2017-07-14] MEDS: ENOXAPARIN 40 MG/0.4 ML SYR SC SCH (07:58)
[2017-07-14] MEDS: LIDOCAINE 4%/MENTHOL 1% PATCH TD SCH (07:59)
--- NOTE | 2017-07-14 10:44 | PDMN ---
Medical Necessity Medical necessity: est los>2mn for R hip fracture, presyncope, possible orthostasis, debility, and acute pain; admit for ortho consult w/possible surgical intervention, bed rest, tele, IVF, CIWA, and pain control; comorbid GERD, Parkinson's, chronic etoh use, and bilat LE edema > on L;recent SNF stay for hip pain; per order and H&P 07/14/17
[2017-07-14] MEDS: CARBIDOPA/LEVO CR 25 MG/100 MG TAB PO SCH ×3 (11:49→23:10)
--- NOTE | 2017-07-14 13:44 | HOSPPROG ---
Hospitalist Progress Note Assessment/Plan: This is an 81 yr old gentleman with past medical hx of Parkinson's, chronic right hip pain, and chronic ETOH use who presents with a presyncopal episode and subsequent fall sustaining a right hip fracture. First encounter with patient, chart reviewed. Reviewed care with Dr. Jennings #Right hip fx Ortho evaluated ROM and TTWB recommended lift strict bedrest #Right shoulder pain x-ray stable #left hand abrasion continue wound care #generalized weakness/gait instability PT/OT #Presyncope, dizziness telemetry monitoring shows SR EKG showed SR interpreted by me O2 monitoring ECHO pending gentle IV fluids orthostatic vs #Acute on Chronic Hip Pain pain medications ordered PRN will add Celebrex today, low likelihood of surgery #thrombocytopenia chronic, likely related to chronic ETOH use continue monitoring #Parkinsons continue Sinemet #Gerd continue PPI #Hx of LLE DVT Lovenox SQ SCDs #Chronic LE edema (Left >right) hx of large DVT in LLE LLE u/s ordered, this is pt is high risk for DVT #Chronic ETOH use pt reports he drinks one glass of wine daily monitor for s/s w/d, will add CIWA if necessary Plan: Will order PT/OT, pt will likely need snf facility, will discuss with CM. Subjective: Pt would not like surgery if there are other options and would like to discuss this with ortho when his family comes in later this afternoon. Objective: Vital Signs Temp Pulse Resp BP Pulse Ox 36.9 C 66 19 142/90 H 94 07/14/17 11:44 07/14/17 11:44 07/14/17 11:44 07/14/17 11:44 07/14/17 11:44 Laboratory Results 07/14/17 04:29 07/14/17 04:29 07/13/17 07/14/17 07/15/17 05:59 05:59 05:59 Intake Total 1100 Balance 1100 - Physical Exam Constitutional: no apparent distress, chronically ill appearing Eyes: PERRL Ears, Nose, Mouth, Throat: hard of hearing Cardiovascular: regular rate and rhythym, edema (left lower leg > right lower leg) Respiratory: clear to auscultation Gastrointestinal: normoactive bowel sounds, soft, non-tender abdomen Skin: other (left hand wound, steri strips, dry dressing in place ) Musculoskeletal: generalized weakness Neurologic: AAOx3 Psychiatric: interacting appropriately ICD10 Worksheet Patient Problems: Problems Problem Status Onset Closed right hip fracture Acute Skin tear of left hand without complication Acute Sprain of right shoulder Acute Influenza A Acute
--- NOTE | 2017-07-14 13:55 | ECHO ---
[email or web address] [address] [address] Main: [phone] Fax: Transthoracic Echocardiogram Name: IGOR KEATING MR#: [id number] Study Date: 07/14/2017 Study Time: 08:30 AM Date of : 1935 Age: 81 year(s) Height: 175.3 cm (69 in.) Weight: 69.85 kg (154 lb.) BSA: 1.85 m2 Gender: Male Examination: Echo Indication: Syncope/LE edema Image Quality: Contrast: Requested by: Salome Glover BP: / Heart Rate: Rhythm: Indication: Syncope/LE edema Procedure Staff Branch Library Clerk: Nelida Musa [facility] Reading Physician: Suman Salinas MD Requesting Provider: Conclusions: Normal size left ventricle. No LV hypertrophy. Normal global systolic LV function. The ejection fraction is estimated to be 65-70 %. No regional wall motion abnormality. Normal size right ventricle. The left atrium is normal in size. The right atrium is normal in size. The mitral valve is normal in appearance and function. Mild to moderate mitral regurgitation. The aortic valve is normal in appearance and function. The tricuspid valve is normal in appearance and function. Mild tricuspid regurgitation is present. The pulmonary artery pressure is mildly increased. The pulmonary artery pressure is moderately increased. RVSP is 48mmHG.. Pulmonary valve not well visualized. The aorta is normal. No pericardial effusion. The right heart is normal in size and function but the pulmonary pressure is elevated which may be driving the lower extremity edema. Syncope is also associated with pulmonary hypertension but usually when the pulmonary pressure is severely elevated. Measurements: Chambers Valvular Assessment AV/MV Valvular Assessment TV/PV Normal Normal Normal Name Value Range Name Value Range Name Value Range Patient: IGOR KEATING Study Date: 07/14/2017 Page 1 of 2 08:30 AM Ao Eugenie (MM): 3.5 cm (2.2 cm-3.7 AV Vmax: 1.45 m/s (1 m/s-1.7 TR Vmax: 3.26 mm/s ( - ) cm) m/s) TR PGmax: 43 mmHg ( - ) IVSd (2D): 0.6 cm (0.6 cm-1.1 AV maxP mmHg ( - ) syst. PAP: 48 mmHg ( - ) cm) AV meanP mmHg ( - ) LVDd (2D): 5.4 cm (4.2 cm-5.9 MV E Vmax: 0.90 m/s ( - ) cm) MV A Vmax: 0.99 m/s ( - ) LVDs (2D): 3.0 cm (2.1 cm-4 MV E/A: 0.91 ( - ) cm) LVPWd (2D): 0.8 cm (0.6 cm-1 cm) LVEF (MOD4): 66 % (>=55 %) EF Range: 65-70 % Continued Measurements: Chambers Valvular Assessment AV/MV Valvular Assessment TV/PV Name Value Name Value Name Value LADs: 3.6 cm MV E/E' Septal: 10.00 CVP (est.): 5 mmHg LADs Lon.5 cm MV E/E' Lateral: 11.40 LA Area: 20.3 cm2 Findings: Left Ventricle: Normal size left ventricle. No LV hypertrophy. Normal global systolic LV function. The ejection fraction is estimated to be 65-70 %. No regional wall motion abnormality. Right Ventricle: Normal size right ventricle. Left Atrium: The left atrium is normal in size. Right Atrium: The right atrium is normal in size. Mitral Valve: The mitral valve is normal in appearance and function. Mild to moderate mitral regurgitation. Aortic Valve: The aortic valve is normal in appearance and function. Tricuspid Valve: The tricuspid valve is normal in appearance and function. Mild tricuspid regurgitation is present. The pulmonary artery pressure is mildly increased. The pulmonary artery pressure is moderately increased. RVSP is 48mmHG.. Pulmonic Valve: Pulmonary valve not well visualized. Aorta: The aorta is normal. Pericardium: No pericardial effusion. (No Signature Object) Patient: IGOR KEATING Study Date: 07/14/2017 Page 2 of 2 08:30 AM [id number]
--- NOTE | 2017-07-14 14:50 | ASMTCMCOM ---
CM Note CM Note Notes: Chart reviewed. 81 year old admitted via ed s/p syncopal episode and fall. PT and OT pending. Needs TBD. CM to follow. Plan:TBD Date Signed: 07/14/2017 02:49 PM Electronically Signed By:Hilary Rodas RN
[2017-07-14] MEDS: PATCH REMOVAL 1 EA PATCH TD SCH (20:29)
--- NOTE | 2017-07-14 21:51 | GCON ---
[f rep st] CONSULTATION HOSPITAL CONSULTATION CHIEF COMPLAINT: Right hip pain. HISTORY OF PRESENT ILLNESS: The patient is an 81-year-old gentleman who presented to the emergency d [facility] for evaluation of right hip pain. He states that he was very active outside the day of pre sentation and became dehydrated. He had an episode of lightheadedness and fell forward. He does not recall the exact events. He does state that he eased himself to the floor rather than abrupt fall f rom standing height. He presented to the emergency department secondary to pain across his right hip , abrasion to his left hand and also right shoulder complaints. He has had bilateral hip replacement s previously 20 years ago. He has developed increasing pain to his hips as of 2-3 months ago, withou t focal trauma or injury. Medical history significant for recent diagnosis of Parkinson's. Of note, he was sent to a alf facility for rehab management secondary to chronic right hip pain i n May. PAST MEDICAL HISTORY: Parkinson's, reflux disease, osteoarthritis. PAST SURGICAL HISTORY: Bilateral hip replacements, cataract surgeries. MEDICATIONS: Celebrex, lidocaine patch, Protonix, Sinemet. SOCIAL HISTORY: He drinks alcohol daily. Denies any tobacco use. REVIEW OF SYSTEMS: Negative for current chest pain, shortness of breath, belly pain. Does have slig ht back pain which is chronic, right shoulder pain, left hand abrasion and right hip pain. PHYSICAL EXAMINATION: On examination is limited and greater than 50% of the total visit time spent i n [id number] discussion with the patient and his family including his son and . He is able to move bilateral lower extremities. He has negative Homans. Does have swelling to the left lower extr emity throughout and he is currently undergoing an ultrasound evaluation for a blood clot. RADIOGRAPHS: AP, lateral of his shoulder demonstrates changes consistent with moderate arthritis. T here is no superior migration of the head. No step-off of the AC joint and no acute fracture. X-ray s of his pelvis demonstrates bilateral hip replacements with large oversized cup. There is clear wea r to the left hip with superior migration of the femoral head within the acetabular socket. He has c emented stems with no gross loosening. There is a fracture which is nondisplaced to the greater troc hanter of his right hip. IMPRESSION: Acute right hip greater trochanteric fracture, right shoulder pain and left hand abrasio n. I spent greater than 30 minutes in [id number] discussion. I have outlined the acute nature of his symptoms versus the more chronic features. For the acute fracture, I have recommended touchdown weig htbearing, range of motion as tolerated, physical therapy. We will evaluate him as he continues to m obilize with physical therapy. I have cautioned him strongly against falling or sudden stress to his hip as this may displace the fracture, in which case this would be surgical. I did discuss he has l oosening to the left hip but this is reduced, albeit asymmetrically within the acetabular socket. Gi syd his history of Parkinson's and generalized weakness, I do not feel he is an appropriate candidate for surgical intervention or revision of either hip component at this time. If he is unable to func tion I would recommend referral to the [facility] at [facility] for revision art hroplasty. We will continue to follow him on the hospital floor and examine him further. /[id number]/MODL
--- NOTE | 2017-07-15 07:41 | SOAPPROG ---
SOAP Progress Note Assessment/Plan: Assessment: s/p presyncopal episode right hip pain right shoulder pain left hand abrasion Plan: mobilize with pt/ot tdwb only rom as joya will need snf no acute intervention for shoulder pain chronic pain to hip related to wear of components over 20+years, no acute intervention recommended 07/14/17 07:06 07/15/17 07:38 Subjective: no current pain Objective: Vital Signs Temp Pulse Resp BP Pulse Ox 36.9 C 58 L 16 144/83 H 93 07/15/17 04:00 07/15/17 04:00 07/15/17 04:00 07/15/17 04:00 07/15/17 04:00 Laboratory Results 07/14/17 04:29 07/14/17 04:29 07/14/17 07/15/17 07/16/17 05:59 05:59 05:59 Intake Total 1100 1250 Output Total 700 Balance 1100 550 difficult to understand this am slight wet pulmonary noise with breathing active rom to adolfo shoulders without increased focal pain active hip flexion and extension to right hip with mod subj pain left lower ext with swelling intact pf,df,ehl adolfo ICD10 Worksheet Patient Problems: Problems Problem Status Onset Closed right hip fracture Acute Skin tear of left hand without complication Acute Sprain of right shoulder Acute Influenza A Acute
[2017-07-15] MEDS: CARBIDOPA/LEVO CR 25 MG/100 MG TAB PO SCH ×4 (08:23→23:03)
[2017-07-15] MEDS ORDERED: LIDOCAINE 4%/MENTHOL 1% PATCH TD SCH (09:00)
[2017-07-15] MEDS: CHOLECALCIFEROL VIT D3 1,000 UNITS TAB PO SCH (10:20)
[2017-07-15] MEDS: LIDOCAINE 4%/MENTHOL 1% PATCH TD SCH (10:21)
[2017-07-15] MEDS: CYANO/VITAMIN B12 1000 MCG TAB PO SCH (10:21)
[2017-07-15] MEDS: ENOXAPARIN 40 MG/0.4 ML SYR SC SCH (10:21)
--- NOTE | 2017-07-15 14:27 | HOSPPROG ---
Hospitalist Progress Note Assessment/Plan: #Right hip fx Ortho following pt tolerating ROM and TTWB #Right shoulder pain x-ray stable #left hand abrasion continue wound care #generalized weakness/gait instability continue PT/OT #Presyncope, dizziness none today orthostatic vs stable telemetry shows SR today d/c telemetry and continuous pulse oximetry #Acute on Chronic Hip Pain -managed with home pain medications #thrombocytopenia chronic, likely related to chronic ETOH use continue monitoring #Parkinsons continue Sinemet #Gerd continue PPI #Hx of LLE DVT Lovenox SQ SCDs #Chronic LE edema (Left >right) improved today LLE U/S negative for DVT #Chronic ETOH use no s/s of w/d #Constipation will order Bowel Protocol #Concern for Dysphagia coughing after food/water intake likely related to progressive Parkinsons will order speech therapy Plan: Pt will need inpatient rehabilitation, will discuss with CM. Subjective: Pt would like to find the best inpatient rehab to help him with his hip fracture. Denies pain Objective: Vital Signs Temp Pulse Resp BP Pulse Ox 36.9 C 71 29 H 114/76 96 07/15/17 12:00 07/15/17 12:00 07/15/17 12:00 07/15/17 12:00 07/15/17 12:00 Laboratory Results 07/14/17 04:29 07/14/17 04:29 07/14/17 07/15/17 07/16/17 05:59 05:59 05:59 Intake Total 1100 1250 Output Total 700 Balance 1100 550 - Physical Exam Constitutional: no apparent distress, chronically ill appearing Eyes: PERRL Ears, Nose, Mouth, Throat: hard of hearing Cardiovascular: regular rate and rhythym Respiratory: clear to auscultation Gastrointestinal: normoactive bowel sounds, soft, non-tender abdomen Skin: warm, other (left hand abrasion, steri strips, dry dressing CDI) Musculoskeletal: generalized weakness Neurologic: AAOx3 Psychiatric: interacting appropriately ICD10 Worksheet Patient Problems: Problems Problem Status Onset Closed right hip fracture Acute Skin tear of left hand without complication Acute Sprain of right shoulder Acute Influenza A Acute
--- NOTE | 2017-07-15 15:42 | ASMTCMCOM ---
CM Note CM Note Notes: Today PT/OT rec inpatient rehab, order input for [facility] inpatient rehab assess and Divina Art notified. Spoke w pt and provided [facility] inpatient rehab list. Pt wants to talk to and Dr. Jennings about inpatient rehab rec because pt is concerned about being able to tolerate 3 hours of therapy. Pt would be agreeable to [facility] where he was recently in May. CM to follow. Date Signed: 07/15/2017 03:41 PM Electronically Signed By:KADEEM Montanez
[2017-07-15] MEDS: PATCH REMOVAL 1 EA PATCH TD SCH (20:24)
[2017-07-16] MEDS: ACETAMINOPHEN 325 MG TAB PO PRN ×2 (05:52→22:54)
--- NOTE | 2017-07-16 06:48 | SOAPPROG ---
SOAP Progress Note Assessment/Plan: Assessment: s/p presyncopal episode right hip pain right shoulder pain left hand abrasion Plan: mobilize with pt/ot tdwb only rom as joya will need snf no acute intervention for shoulder pain chronic pain to hip related to wear of components over 20+years, no acute intervention recommended will obtain new right hip xray to eval position after mobilization 07/14/17 07:06 07/15/17 07:38 07/16/17 06:46 Subjective: improving walked 20 ft yesterday Objective: Vital Signs Temp Pulse Resp BP Pulse Ox 36.4 C 63 19 148/88 H 95 07/16/17 04:00 07/16/17 04:00 07/16/17 04:00 07/16/17 04:00 07/16/17 04:00 Laboratory Results 07/14/17 04:29 07/14/17 04:29 07/15/17 07/16/17 07/17/17 05:59 05:59 05:59 Intake Total 1250 750 Output Total 700 225 Balance 550 525 intact active hip flex, ext intact active knee flexion and ext neg homans adolfo intact pf,df,ehl shoulder active rom with mild discomfort ICD10 Worksheet Patient Problems: Problems Problem Status Onset Closed right hip fracture Acute Skin tear of left hand without complication Acute Sprain of right shoulder Acute Influenza A Acute
--- NOTE | 2017-07-16 06:49 | PDIAF ---
- Diagnosis Diagnosis: right hip fx Code Status: Full Code - Medication Management Discharge Medications: Medications to Continue on Transfer Carbidopa/Levo Cr 25/100Mg [Sinemet CR 25/100 MG (*)] 2 tab PO QID@08,,,05/22/17 [Last Taken 07/13/17 23:00] Lidocaine 4%/Menthol 1% [Icy Hot Lidocaine/Menthol 4%/1% Patch (*)] 1 patch TD DAILY patch 05/26/17 [Last Taken 07/13/17] celeCOXIB [Celecoxib] 200 mg PO DAILY #1 capsule 05/26/17 [Last Taken 07/13/17] Cholecalciferol Vit D3 [Vitamin D3 (*)] 1,000 units PO DAILY 07/14/17 [Last Taken Unknown] Cyanocobalamin [Vitamin B12 (*)] 1,000 mcg PO DAILY 07/14/17 [Last Taken Unknown ] Omeprazole 20 mg PO DAILY 07/14/17 [Last Taken 07/13/17] Discharge Medications: Refer to the Discharge Home Medication list for PRN reason. - Orders Services needed: Physical Therapy Isolation Type: None Activity/Weight Bearing Restrictions: rom as joya right shoulder. daily dressing changes left hand. TDWB only right hip. rom as joya adolfo lower ext. f/ u at [facility] Additional Instructions: rom as joya right shoulder daily dressing changes left hand TDWB only right hip rom as joya adolfo lower ext f/u at two weeks [facility] ortho - Follow Up Care Current Providers and Referrals: Patient,NotPresent [Unknown] - As per Instructions Clifton Jennings MD [Medical Doctor] -
[2017-07-16] MEDS: CARBIDOPA/LEVO CR 25 MG/100 MG TAB PO SCH ×4 (08:49→22:45)
[2017-07-16] MEDS: CYANO/VITAMIN B12 1000 MCG TAB PO SCH (10:33)
[2017-07-16] MEDS: CHOLECALCIFEROL VIT D3 1,000 UNITS TAB PO SCH (10:34)
[2017-07-16] MEDS: LIDOCAINE 4%/MENTHOL 1% PATCH TD SCH (10:34)
[2017-07-16] MEDS: ENOXAPARIN 40 MG/0.4 ML SYR SC SCH (10:34)
--- NOTE | 2017-07-16 14:36 | HOSPPROG ---
Hospitalist Progress Note Assessment/Plan: 81y male with hx of Parkinsons. First encounter, chart reviewed. #Right hip fx stable Ortho following pt tolerating ROM and TTWB #Right shoulder pain x-ray stable #left hand abrasion continue wound care #generalized weakness/gait instability continue PT/OT #Presyncope, dizziness none today orthostatic vs stable telemetry shows SR today d/c telemetry and continuous pulse oximetry #Acute on Chronic Hip Pain -managed with home pain medications #thrombocytopenia chronic, likely related to chronic ETOH use continue monitoring #Parkinsons continue Sinemet #Gerd continue PPI #Hx of LLE DVT Lovenox SQ SCDs #Chronic LE edema (Left >right) improved today LLE U/S negative for DVT #Chronic ETOH use no s/s of w/d #Constipation will order Bowel Protocol #Concern for Dysphagia coughing after food/water intake likely related to progressive Parkinsons speech therapy eval and plan Plan: Pt will need inpatient rehabilitation, will discuss with CM. DC in am to [facility] care of [facility] if stable. Subjective: Feeling ok today. Tired. Pain controlled. Objective: Vital Signs Temp Pulse Resp BP Pulse Ox 36.4 C 80 19 157/87 H 94 07/16/17 08:00 07/16/17 11:13 07/16/17 11:13 07/16/17 11:13 07/16/17 11:13 Laboratory Results 07/14/17 04:29 07/14/17 04:29 07/15/17 07/16/17 07/17/17 05:59 05:59 05:59 Intake Total 1250 750 Output Total 700 225 Balance 550 525 - Physical Exam Constitutional: appears nourished, not in pain, chronically ill appearing Eyes: PERRL, anicteric sclera, EOMI Ears, Nose, Mouth, Throat: moist mucous membranes, ears appear normal, hard of hearing Cardiovascular: No JVD, No tachycardia, No edema Respiratory: no respiratory distress, no rales or rhonchi, reduced air movement Gastrointestinal: soft, non-tender abdomen, No tenderness, No ascites Skin: warm, normal color, No mottled Musculoskeletal: pain with ROM, muscular tenderness, generalized weakness Neurologic: AAOx3 Psychiatric: interacting appropriately, not anxious, not encephalopathic, poor memory ICD10 Worksheet Patient Problems: Problems Problem Status Onset Influenza A Acute Skin tear of left hand without complication Acute Sprain of right shoulder Acute Closed right hip fracture Acute
--- NOTE | 2017-07-16 16:59 | ASMTCMCOM ---
CM Note CM Note Notes: Pt does not qualify for [facility] inpatient rehab and is accepted at [facility]. Updated pt and daughter today. D/c plan: [facility] when medically stable Date Signed: 07/16/2017 04:59 PM Electronically Signed By:KADEEM Montanez
[2017-07-16] MEDS: PATCH REMOVAL 1 EA PATCH TD SCH (23:38)
[2017-07-17 07:47] VITALS: BP 146/91
[2017-07-17] MEDS: CARBIDOPA/LEVO CR 25 MG/100 MG TAB PO SCH (07:53)
[2017-07-17] MEDS: CHOLECALCIFEROL VIT D3 1,000 UNITS TAB PO SCH (07:54)
[2017-07-17] MEDS: LIDOCAINE 4%/MENTHOL 1% PATCH TD SCH (07:54)
[2017-07-17] MEDS: CYANO/VITAMIN B12 1000 MCG TAB PO SCH (07:54)
[2017-07-17] MEDS: ENOXAPARIN 40 MG/0.4 ML SYR SC SCH (07:54)
[2017-07-17] MEDS: ACETAMINOPHEN 325 MG TAB PO PRN (08:03)
--- NOTE | 2017-07-17 08:51 | PDIAF ---
- Diagnosis Diagnosis: right hip fx Code Status: Full Code - Medication Management Discharge Medications: Medications to Continue on Transfer Carbidopa/Levo Cr 25/100Mg [Sinemet CR 25/100 MG (*)] 2 tab PO QID@08,,,05/22/17 [Last Taken 07/13/17 23:00] Lidocaine 4%/Menthol 1% [Icy Hot Lidocaine/Menthol 4%/1% Patch (*)] 1 patch TD DAILY patch 05/26/17 [Last Taken 07/13/17] celeCOXIB [Celecoxib] 200 mg PO DAILY #1 capsule 05/26/17 [Last Taken 07/13/17] Cholecalciferol Vit D3 [Vitamin D3 (*)] 1,000 units PO DAILY 07/14/17 [Last Taken Unknown] Cyanocobalamin [Vitamin B12 (*)] 1,000 mcg PO DAILY 07/14/17 [Last Taken Unknown ] Omeprazole 20 mg PO DAILY 07/14/17 [Last Taken 07/13/17] Acetaminophen [Tylenol 325mg (*)] 650 mg PO Q4HRS PRN tab 07/17/17 [Last Taken Unknown] Enoxaparin [Lovenox 40 MG (*)] 40 mg SC DAILY syr 07/17/17 [Last Taken Unknown] Patch Removal 1 ea TD DAILY21 patch 07/17/17 [Last Taken Unknown] Discharge Medications: Refer to the Discharge Home Medication list for PRN reason. - Orders Services needed: Registered Nurse, Physical Therapy, Occupational Therapy Isolation Type: None Diet Texture: Regular Texture Diet, Thin Liquids, Meds Whole in Puree Activity/Weight Bearing Restrictions: rom as joya right shoulder. daily dressing changes left hand. TDWB only right hip. rom as joya adolfo lower ext. f/ u at [facility] Additional Instructions: rom as joya right shoulder daily dressing changes left hand TDWB only right hip rom as joya adolfo lower ext f/u at two weeks [facility] - Follow Up Care Current Providers and Referrals: Patient,NotPresent [Unknown] - As per Instructions Clifton Jennings MD [Medical Doctor] -
--- NOTE | 2017-07-17 09:19 | ASMTLACE ---
LACE Length of stay for Answers: 3 days current admission Acuity / Level of Answers: Yes Care: Did the patient have an inpatient admission? Comorbidities - select Answers: Opioid dependence all that apply / Chronic pain Other Notes: Parkinson's disease # of Emergency department Answers: 1-2 visits in the last 6 months Score: 12 Date Signed: 07/17/2017 09:18 AM Electronically Signed By:Hilary Rodas RN
--- NOTE | 2017-07-17 09:21 | ASMTCMCOM ---
CM Note CM Note Notes: Per MD patient medically cleared for discharge to SNF. PASSR completed. Final orders via allscripts. Call to [facility] in [place] and she will return my call with pickup time for patient, Will provide RN with report number to call.CM available should other needs arise. Plan: To [facility] SNF Date Signed: 07/17/2017 09:21 AM Electronically Signed By:Hilary Rodas RN
--- NOTE | 2017-07-17 14:40 | GDS ---
[f rep st] DISCHARGE SUMMARY DISCHARGE DIAGNOSES: 1. Right hip fracture. 2. Right shoulder pain. 3. Left hand abrasion. 4. Generalized weakness with gait instability. 5. Presyncope. 6. Txjrk-nv-vuxuggr hip pain. 7. Thrombocytopenia. 8. Parkinson disease. 9. Chronic alcohol use. 10. Dysphagia. CONSULTATIONS: 1. Orthopedics. 2. Speech Therapy. 3. Physical Therapy. PHYSICAL EXAM: GENERAL: The patient is alert. VITAL SIGNS: Afebrile at 36.4, pulse 67, respirator y rate is 18, blood pressure 146/91. He is saturating 91% on room air. I have seen and evaluated th e patient on the day of discharge. HOSPITAL COURSE: The patient is an 81-year-old male who presented to the emergency room after suffer ing a fall. He was evaluated and diagnosed with: 1. Right hip fracture. During this hospitalization, he received a consultation from Orthopedics. H e will require physical therapy in the outpatient setting. 2. Right shoulder pain is secondary to the patient's fall, with no fracture or abnormality identifie d. He will continue supportive management. 3. Left hand abrasion, stable. Continue wound care. 4. Syncope. This has been resolved for several days now with no further concerns. 5. History of Parkinson disease with dysphagia. The patient will require further rehabilitation. DISPOSITION: The patient will be discharged to [facility]. DISCHARGE MEDICATIONS: Please refer to EMR form. I have not adjusted the patient's meds to the best of my knowledge. FOLLOWUP: Will be with Dr. Jennings, as well as the patient's primary care physician. I have spent gr eater than 35 minutes in the care, coordination, and management of the patient's disposition. /[id number]/MODL
--- NOTE | 2017-07-17 15:37 | ASDISCHSUM ---
Discharge Information Plan Status:SNF Medically Cleared to Leave:07/17/2017 Discharge Date:07/17/2017 11:49 AM D/C Disposition:[facility] ADT D/C Disposition:[facility] Facility Projected Discharge Date:07/17/2017 11:00 AM Transportation at D/C:Wheelchair Van Discharge Delay Reason: Follow-Up Date:07/17/2017 11:00 AM Discharge Slot: Final Diagnosis: Placement Information Referral Type:*[facility]p/SNF Referral ID:[id number] Provider Name:[facility] Address 1:[address] Address 2: City:[place] Selection Factors: State:[place] Referral Type:Rehabilitation Hospital Referral ID:[id number] Provider Name: Address 1: Phone Number: Address 2: Fax Number: City: Selection Factors: State: Patient Contact Information Contact Name:SHERYL Relationship: Address:[address] Work Phone: City:[place] Alternate Phone: State/Zip Code:[place] [address] Email: Financial Information Financial Class:Medicare Primary Plan Desc:MEDICARE INPATIENT Primary Plan Number:[id number] Secondary Plan Desc:CARLOS MANUEL/PRIYANKA SUPPLEMENT Secondary Plan Number:[id number] Assessment Information LACE LACE Length of stay for Answers: 3 days current admission Acuity / Level of Answers: Yes Care: Did the patient have an inpatient admission? Comorbidities - select Answers: Opioid dependence all that apply / Chronic pain Other Notes: Parkinson's disease # of Emergency department Answers: 1-2 visits in the last 6 months Score: 12 Date Signed: 07/17/2017 09:18 AM Electronically Signed By:Hilary Rodas RN [facility] Progress Note CM Note CM Note Notes: Chart reviewed. 81 year old admitted via ed s/p syncopal episode and fall. PT and OT pending. Needs TBD. CM to follow. Plan:TBD Date Signed: 07/14/2017 02:49 PM Electronically Signed By:Hilary Rodas RN [facility] CM Progress Note CM Note CM Note Notes: Today PT/OT rec inpatient rehab, order input for [facility] inpatient rehab assess and Divina Art notified. Spoke w pt and provided [facility] inpatient rehab list. Pt wants to talk to and Dr. Jennings about inpatient rehab rec because pt is concerned about being able to tolerate 3 hours of therapy. Pt would be agreeable to [facility] where he was recently in May. CM to follow. Date Signed: 07/15/2017 03:41 PM Electronically Signed By:KADEEM Montanez [facility] CM Progress Note CM Note CM Note Notes: Pt does not qualify for [facility] inpatient rehab and is accepted at [facility]. Updated pt and daughter today. D/c plan: [facility] when medically stable Date Signed: 07/16/2017 04:59 PM Electronically Signed By:KADEEM Montanez [facility] CM Progress Note CM Note CM Note Notes: Per MD patient medically cleared for discharge to SNF. PASSR completed. Final orders via [employer]. Call to [facility] [place] and she will return my call with pickup time for patient, Will provide RN with report number to call.CM available should other needs arise. Plan: To [facility] Date Signed: 07/17/2017 09:21 AM Electronically Signed By:Hilary Rodas RN Intervention Information Intervention Type:*IM-Signed Date of Service:07/17/2017 10:37 AM Patient Type:Inpatient Staff Member:Lauryn Caro Hours: Discipline: Severity: Comment:
== END 2017-07-17 11:49 | DRG 536 ==
LOC: EDUNIT# → F3N 07-14 01:45
PROVIDERS: ADMIT Family Medicine; ATTEND Hospitalist
DX: S72.114A Nondisplaced fracture of greater trochanter of right femur, initial encounter for closed fracture (principal); S43.401A Unspecified sprain of right shoulder joint, initial encounter; S60.512A Abrasion of left hand, initial encounter; W10.9XXA Fall (on) (from) unspecified stairs and steps, initial encounter; Y92.019 Unspecified place in single-family (private) house as the place of occurrence of the external cause; G20 Parkinson's disease; R55 Syncope and collapse; K21.9 Gastro-esophageal reflux disease without esophagitis; H91.93 Unspecified hearing loss, bilateral; M25.559 Pain in unspecified hip; D69.6 Thrombocytopenia, unspecified; R53.1 Weakness; R26.81 Unsteadiness on feet; K59.00 Constipation, unspecified; Z96.643 Presence of artificial hip joint, bilateral; Z97.4 Presence of external hearing-aid; Z72.89 Other problems related to lifestyle; Z86.718 Personal history of other venous thrombosis and embolism
CPT/HCPCS: 92610-GN; 97116-GP; 97162-GP; 97166-GO; 97530-GP; 97535-GO; G8978-GP-CK; G8979-GP-CI; G8987-GO-CK; G8988-GO-CI; G8996-GN-CI; G8997-GN-CI; J1650

== ENCOUNTER → 2017-08-26 | Outpatient (CLI) | payer OTHER, MEDICARE | LOC: BMCIMAGING 13:08 | PROVIDERS: ATTEND Orthopaedic Surgery | DX: Z47.1 Aftercare following joint replacement surgery (principal); Z96.641 Presence of right artificial hip joint ==

== ENCOUNTER → 2017-09-23 | Outpatient (CLI) | payer OTHER, MEDICARE | LOC: BMCIMAGING 13:27 | PROVIDERS: ATTEND Internal Medicine | DX: S72.001D Fracture of unspecified part of neck of right femur, subsequent encounter for closed fracture with routine healing (principal); R60.0 Localized edema ==

== ENCOUNTER 2018-02-16 09:56 | Inpatient (IN) | payer OTHER, MEDICARE ==
--- NOTE | 2018-02-16 10:14 | EDPHY ---
H & P Time Seen by Provider: 02/16/18 10:00 HPI/ROS: CHIEF COMPLAINT: Chest pain HISTORY OF PRESENT ILLNESS: Patient has Parkinson's disease and had a mechanical fall in the kitchen on Thanksgiving at his son's house in [place]. He was taken to [facility] had a negative head CT and was found to have a fractured right humerus. He was kept overnight and then discharged he has been not mobile since then requiring 2 people to lift him. 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 Not currently anticoagulated. Today this morning at a time that is not clear he developed left-sided chest pain. On arrival he has a little bit present. It is intermittent, not associated with radiation to the arm neck or back, no nausea or diaphoresis, not better worse with deep breath or moving around. Mild. REVIEW OF SYSTEMS: Eye: no change in vision ENT: no sore throat Cardiac: HPI no palpitations Pulmonary: no cough or SOB Abdomen: no vomiting, diarrhea, abdominal pain Musculoskeletal: Right shoulder pain after the fall, diagnosed with a fractured humerus. No weakness or numbness in the right hand. Skin: Bruising around the right orbit and on the right shoulder. Neuro: no headache Constitutional: no fever : no urinary symptoms, no hematuria A comprehensive 10 point review of systems is otherwise negative aside from elements mentioned in the history of present illness. PAST MEDICAL HISTORY: Includes Parkinson's disease, right humerus fracture Social history: Lives independently with his and daughter in [place], son lives in [place] and is here with him. General Appearance: Alert and conversant, cooperative. Eyes: No scleral icterus. Right pupil 3 mm left pupil 2 mm reactive, extraocular motion intact. ENT, Mouth: Normal mucous membranes. Right periorbital bruising. Respiratory: Normal respiratory effort, breath sounds equal, lungs are clear to auscultation. Cardiovascular: Regular rate and rhythm. Gastrointestinal: Right upper quadrant abdominal tenderness with right lower rib cage tenderness. No left-sided chest wall tenderness. Neurological: Alert, face symmetric. He can move all 4 extremities but he is very stiff in both legs. Fluent speech. Follows commands and answers questions appropriately. Skin: Bruising around the right side of the face. Bruising on the right upper extremity. Musculoskeletal: Right arm is in a sling with upper humeral and shoulder bruising and ecchymosis. Normal motor sensory and radial pulse in the right hand. Psychiatric: Not agitated. Emergency Department course/MDM: Patient is not ambulatory, will need admission. Initial EKG does not show ST elevation. Plan for D-dimer and troponin, chest imaging and abdominal imaging to evaluate for posttraumatic sequela with right upper quadrant abdominal tenderness. Ultrasound of the left leg. 1130: US per Von old clot no new DVT. CTA discussed/consented. 1240: CT per Ashley shows no PE, extensive right lower lung alveolar infiltrate consistent with pneumonia, abdomen and pelvis negative for trauma. Admission for IV antibiotics, supportive care, will treat for possible HCAP with hospitalization last week at [facility]. Does not have SIRS criteria on arrival in the ED. Smoking Status: Former smoker Constitutional: Initial Vital Signs Temperature (C) 36.5 C 02/16/18 10:01 Heart Rate 85 02/16/18 10:01 Respiratory Rate 16 02/16/18 10:01 Blood Pressure 162/122 H 02/16/18 10:01 O2 Sat (%) 95 02/16/18 10:01 O2 Delivery Mode Room Air Allergies/Adverse Reactions: No Known Allergies Allergy (Verified 11/18/17 15:55) Home Medications: Medication Instructions Recorded Cholecalciferol Vit D3 [Vitamin D3 1,000 units PO DAILY 07/14/17 (*)] Cyanocobalamin [Vitamin B12 (*)] 1,000 mcg PO DAILY 07/14/17 Omeprazole 20 mg PO DAILY 07/14/17 Acetaminophen [Tylenol 325mg (*)] 650 mg PO Q4HRS PRN tab 07/17/17 Carbidopa/Levodopa 25/100Mg 2 tab PO 06,10,14,18,22 02/16/18 [Sinemet 25/100 MG (*)] Cyclobenzaprine [Flexeril 10 MG 10 mg PO DAILY PRN 02/16/18 (*)] oxyCODONE IR [Oxycodone Ir (*)] 5 mg PO TID PRN 02/16/18 Medical Decision Making - Diagnostics EKG Interpretation: 12-lead EKG interpreted by me; official reading is in computer system. My interpretation is sinus rhythm with inferior Q-waves noted, probable old inferior infarct. No acute ST changes. Imaging Results: Imaging Impressions Extremity Venous Study 02/16/18 10:13 Impression: 1. 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 2. No new acute thrombus since September 2017. Findings and recommendations discussed with Emergency Department physician, Ezio Pat, at 1128 hours, 02/16/2018. Final report concurs with initial preliminary interpretation. Chest X-Ray 02/16/18 10:24 Impression: 1. Patchy infiltrate/pneumonia suspected at the right lung base versus subsegmental atelectasis with poor inspiration. 2. Fracture of the right humeral neck with displacement of the humeral head posteriorly that has occurred since June,. Abdomen CT 02/16/18 11:20 Impression: 1. No abdominopelvic inflammatory mass or ascites. 2. Large infrarenal abdominal aortic aneurysm measuring 8.0 x 6.7 cm. Given size this is at high risk for rupture. 3. Cholelithiasis without acute cholecystitis. 4. Constipation. Ezio Pat was notified of these findings by telephone at 12:37 PM on 02/16/2018. Chest/Thorax CTA 02/16/18 11:20 Impression: 1. Right lower lobe pneumonia. Recommend continued radiographic surveillance until complete resolution. 2. No evidence of acute pulmonary embolism. 3. Comminuted, displaced proximal right humeral fracture. Ezio Pat was notified of these findings by telephone at 12:37 PM on 02/16/2018. Imaging: Discussed imaging studies w/ call taker Radiologist Differential Diagnosis: Differential diagnosis considered for chest pain including but not limited to myocardial ischemia, aortic dissection, pericarditis, pulmonary embolus, chest wall pain, pleural inflammation and pulmonary infectious causes. Consult/Admit Bed Type: [place] [id number] - Data Points Laboratory Results: Laboratory Results 02/16/18 10:10 02/16/18 10:10 02/16/18 02/16/18 02/16/18 10:13 10:10 10:10 WBC RBC Hgb Hct MCV MCH MCHC RDW Plt Count MPV Neut % (Auto) Lymph % (Auto) Banner % (Auto) Eos % (Auto) Baso % (Auto) Nucleat RBC Rel Count Absolute Neuts (auto) Absolute Lymphs (auto) Absolute Monos (auto) Absolute Eos (auto) Absolute Basos (auto) Absolute Nucleated RBC Immature Gran % Immature Gran # D-Dimer 3.12 ug/mLFEU H ug/mLFEU (0.00-0.50) Sodium 139 mEq/L mEq/L (135-145) Potassium 4.0 mEq/L mEq/L (3.3-5.0) Chloride 101 mEq/L mEq/L (97-110) Carbon Dioxide 28 mEq/l mEq/l (22-31) Anion Gap 10 mEq/L mEq/L (6-14) BUN 16 mg/dL mg/dL (7-23) Creatinine 0.8 mg/dL mg/dL (0.7-1.3) Estimated GFR > 60 Glucose 98 mg/dL mg/dL (70-100) Calcium 9.2 mg/dL mg/dL (8.5-10.4) Total Bilirubin 1.7 mg/dL H mg/dL (0.1-1.4) Conjugated Bilirubin 0.5 mg/dL mg/dL (0.0-0.5) Unconjugated Bilirubin 1.2 mg/dL H mg/dL (0.0-1.1) AST 35 IU/L IU/L (17-59) ALT 12 IU/L L IU/L (21-72) Alkaline Phosphatase 90 IU/L IU/L (38-126) POC Troponin I 0.00 ng/mL ng/mL (0.00-0.08) Total Protein 6.8 g/dL g/dL (6.3-8.2) Albumin 3.8 g/dL g/dL (3.5-5.0) Lipase 270 IU/L IU/L (23-300) 02/16/18 10:10 WBC 6.26 10^3/uL 10^3/uL (3.80-9.50) RBC 4.68 10^6/uL 10^6/uL (4.40-6.38) Hgb 14.0 g/dL g/dL (13.7-17.5) Hct 40.6 % % (40.0-51.0) MCV 86.8 fL fL (81.5-99.8) MCH 29.9 pg pg (27.9-34.1) MCHC 34.5 g/dL g/dL (32.4-36.7) RDW 14.0 % % (11.5-15.2) Plt Count 147 10^3/uL L 10^3/uL (150-400) MPV 9.8 fL fL (8.7-11.7) Neut % (Auto) 76.5 % H % (39.3-74.2) Lymph % (Auto) 13.1 % L % (15.0-45.0) Banner % (Auto) 8.3 % % (4.5-13.0) Eos % (Auto) 1.1 % % (0.6-7.6) Baso % (Auto) 0.5 % % (0.3-1.7) Nucleat RBC Rel Count 0.0 % % (0.0-0.2) Absolute Neuts (auto) 4.79 10^3/uL 10^3/uL (1.70-6.50) Absolute Lymphs (auto) 0.82 10^3/uL L 10^3/uL (1.00-3.00) Absolute Monos (auto) 0.52 10^3/uL 10^3/uL (0.30-0.80) Absolute Eos (auto) 0.07 10^3/uL 10^3/uL (0.03-0.40) Absolute Basos (auto) 0.03 10^3/uL 10^3/uL (0.02-0.10) Absolute Nucleated RBC 0.00 10^3/uL 10^3/uL (0-0.01) Immature Gran % 0.5 % % (0.0-1.1) Immature Gran # 0.03 10^3/uL 10^3/uL (0.00-0.10) D-Dimer Sodium Potassium Chloride Carbon Dioxide Anion Gap BUN Creatinine Estimated GFR Glucose Calcium Total Bilirubin Conjugated Bilirubin Unconjugated Bilirubin AST ALT Alkaline Phosphatase POC Troponin I Total Protein Albumin Lipase Medications Given: Discontinued Medications Piperacillin/Tazobactam/Dextrose (Zosyn (Premix)) 100 mls @ 200 mls/hr IV EDNOW ONE PRN Reason: Protocol Stop: 02/16/18 13:10 Last Admin: 02/16/18 13:24 Dose: 100 mls Point of Care Test Results: Chemistry 02/16/18 10:13 POC Troponin I 0.00 ng/mL ng/mL (0.00-0.08) Departure - Departure Disposition: [facility] Inpatient Acute Clinical Impression: Chest pain Qualifiers: Chest pain type: unspecified Qualified Code(s): R07.9 - Chest pain, unspecified Pneumonia Qualifiers: Pneumonia type: due to unspecified organism Laterality: right Lung location: lower lobe of lung Qualified Code(s): J18.1 - Lobar pneumonia, unspecified organism Fracture, humerus closed Qualifiers: Encounter type: initial encounter Humerus Location: proximal Fracture morphology: other fracture Fracture alignment: nondisplaced Laterality: right Qualified Code(s): S42.294A - Other nondisplaced fracture of upper end of right humerus, initial encounter for closed fracture Condition: Good
--- NOTE | 2018-02-16 10:15 | CPEKG ---
Test Reason : OPEN Blood Pressure : / mmHG Vent. Rate : 080 BPM Atrial Rate : 080 BPM P-R Int : 165 ms QRS Dur : 085 ms QT Int : 357 ms P-R-T Axes : 067 -18 047 degrees QTc Int : 412 ms Sinus rhythm Inferior infarct, old Confirmed by Ezio Pat ([id number]) on 02/16/2018 10:14:46 AM Referred By: Confirmed By:Ezio Pat
[2018-02-16 10:27] LABS: PLATELET COUNT 147 10^3/uL (150-400)
[2018-02-16] MEDS ORDERED: IOPAMIDOL (ISOVUE 370) 100 ML BTL IV ONE (11:22)
[2018-02-16] MEDS ORDERED: PIPERACILLIN/TAZO 4.5 GM/DEX 100 ML IV ONE (12:41)
[2018-02-16] MEDS ORDERED: ONDANSETRON DISINTEGRATING 4 MG TAB PO PRN (14:39)
[2018-02-16] MEDS ORDERED: ONDANSETRON 4 MG/2 ML VIAL IVP PRN (14:39)
[2018-02-16] MEDS ORDERED: CYCLOBENZAPRINE 10 MG TAB PO PRN (14:49)
[2018-02-16] MEDS: CARBIDOPA/LEVODOPA 25 MG/100 MG TAB PO SCH ×3 (15:15→22:00)
[2018-02-16 15:34] LABS: INR 1.25 (0.83-1.16); PROTIME(PATIENT) 15.9 SEC (12.0-15.0)
--- NOTE | 2018-02-16 15:51 | GHP ---
DATE OF ADMISSION: 02/16/2018 HISTORY OF PRESENT ILLNESS: An 82-year-old gentleman with a history of Parkinson's and recent humeru s fracture, who presents to the hospital with generalized weakness. He fever, chills, cou gh, or sputum. He has been a smoker, but quit for a number of years. He also had left-sided chest p ain. He does not have a known history of coronary disease. He does have a family history of abdominal aortic aneurysm. Also since his hip fracture, he has had decreased mobility and having a hard time getting around. He does not use a walker. REVIEW OF SYSTEMS: A complete 10-point review of systems conducted and negative, except as noted in the HPI. PAST MEDICAL HISTORY: Parkinson disease, history of blood clot in his legs, right humerus fracture. SOCIAL HISTORY: He lives independently with his and daughter in [place]. He has been a heavy dri nker in the past, but it appears he has cut down. It is not clear that alcohol is related to his fal l. ALLERGIES: No known drug allergies. HOME MEDICATIONS: Tylenol, carbidopa levodopa, vitamin D3, B12, Flexeril 10 daily, omeprazole, oxyco done. FAMILY HISTORY: As in the HPI. PHYSICAL EXAMINATION: VITAL SIGNS: Temp 36.5, blood pressure 162/122, now 133/74, pulse 85, breathi ng 18 a minute, 95% on room air. GENERAL: In no acute distress. He has some bruising around his fa ce. HEENT: Sclerae anicteric. Oropharynx clear. Mucous membranes are moist. NECK: Supple, witho ut lymphadenopathy or JVD. LUNGS: Show some crackles in the right side. It is a difficult exam bec ause his humerus is over his right side. Left side is clear. HEART: S1, S2. ABDOMEN: Soft. Ther e is a large pulsatile mass in his abdomen. LOWER EXTREMITIES: Without edema. Calves are nontender . SKIN: Without rash. NEUROLOGIC: Exam is nonfocal. LABORATORY DATA: White count 6.3, hematocrit 40.6, platelets are 147,000. D-dimer is elevated at 3. 12. Sodium 139, potassium 4.0, chloride 101, bicarb 28, BUN 16, creatinine 0.8, glucose is 98, total bilirubin is 1.7 with an unconjugated of 1.2. LFTs are all right. Troponin is 0.00. EKG interpreted by me shows sinus at 80 with normal axis and intervals, and no ST or T-wave changes. CTA of the chest shows right lower lobe pneumonia, no evidence of pulmonary embolism, comminuted dis placed proximal right humerus fracture. Abdominal CT shows a large abdominal aortic aneurysm, 6.7 x 8.0 cm. I have reviewed the images myself. Lower extremity ultrasound shows partial nonocclusive DVT, a dupl icated the femoral vein with no new acute thrombus since September of 2017. I have discussed the case with Dr. Ezio Calderón and Dr. Rock Ponce. ASSESSMENT/PLAN: An 82-year-old gentleman with a recent humerus fracture, pneumonia, and very large abdominal aortic aneurysm. 1. Abdominal aortic aneurysm. This is quite large. I have consulted Dr. Ponce, who will see the pa tient this evening. I have ordered p.r.n. hydralazine for blood pressure control. He does not have abdominal pain. 2. Pneumonia. This is community-acquired pneumonia as he was just seen as an outpatient at [facility]. I have started him on ceftriaxone and azithromycin. I will order incentive spirometry. Ofte n times, patients following humerus fracture are at risk for pneumonia given hypoventilation. 3. Parkinson's. Continue his medications. 4. Chest pain. We will repeat a troponin. I think this is likely pneumonia related. 5. Hypertension. He was hypertensive on presentation. I have ordered p.r.n. hydralazine. Goal blo od pressure is less than 140. 6. Prophylaxis. Pharmacologic prophylaxis is contraindicated in the setting of this large abdominal aortic aneurysm. DISPOSITION: Inpatient status. CODE STATUS: Full code. /[id number]/MODL
--- NOTE | 2018-02-16 17:06 | PDMN ---
Medical Necessity Medical necessity: [facility]: Vascular disease: 82 yo presents w/ generalized weakness and L CP. Assessment shows dx of pneumonia (CAP) and large AAA, 8X6.7cm high risk for rupture. Pt started on IV antibx for pneumonia and surgical consult ordered for AAA. PT is hypertensive 160s/120s. BC pending. Plt low at 147K. Cardiac workup for CP including serial troponins. PT/OT/SHREDDER/GRANULATOR OPERATOR evals ordered. Anticipate >2MN for ongoing monitoring and tx of the above. Hx sig for Parkinson's, DVT, recent R humerus fx
[2018-02-16] MEDS: AZITHROMYCIN IV 500 MG in NS 250 ML IV SCH (17:20)
[2018-02-16] MEDS ORDERED: CARBIDOPA/LEVODOPA 25 MG/100 MG TAB PO SCH (18:00)
[2018-02-16] MEDS: ACETAMINOPHEN 325 MG TAB PO PRN (19:42)
--- NOTE | 2018-02-16 23:03 | GCON ---
HISTORY OF PRESENT ILLNESS: The patient is a very 82-year-old male who was found incidentally to hav e an 8 cm abdominal aneurysm on abdominal CT scan. He is asymptomatic from this with no back pain, a bdominal pain, or claudication symptoms. I was consulted for evaluation of his aneurysm, which is qu ite large and palpable. PAST MEDICAL HISTORY: Includes Parkinson disease, for which he is on treatment. He has had a histor y of blood clots in his legs. He has a recent right humerus fracture from a fall. He had a previous hip arthroplasty from a hip fracture over 6 months ago. SOCIAL HISTORY: He is a nonsmoker, having quit over 40 years ago. ALLERGIES: None. MEDICATIONS: Include carbidopa levodopa, Flexeril, omeprazole, oxycodone, vitamins. FAMILY HISTORY: Noncontributory. PHYSICAL EXAMINATION: GENERAL: Reveals an alert 82-year-old male with features of Parkinson's. He is in no acute distress, afebrile. HEENT: Nonicteric, EOMs intact, ecchymosis around his right orbi t with no oral lesions. NECK: Supple without adenopathy, bruits, or vein engorgement. CHEST: Reve als some possible rales in the right base, otherwise symmetric breath sounds. CARDIAC: Exam reveals a regular rhythm without murmurs. ABDOMEN: Soft and nontender. He has a large pulsatile mass in t he upper abdomen. There are no obvious hernias and no surgical scars. EXTREMITIES: Reveal good fem oral pulses. He has decreased pedal pulses, but they are present. There is no significant edema or calf tenderness. He has a right humerus fracture with his arm in a sling. NEUROLOGIC: Exam is symm etric, although he has features of Parkinson's. PSYCH: Exam reveals him to be alert, oriented, and cooperative. IMPRESSION: An 8 cm abdominal aortic aneurysm, which has a virtual certainty of rupture over the nex t 2 years. He has no history of how long this has been there and no recent symptoms to suggest sudde n expansion. He has no claudication symptoms, although he cannot walk for because of his hip fractur e and his Parkinson's. If he is a candidate from a medical standpoint, he could possibly have this a neurysm fixed endovascularly, although the neck is quite serpentine and may be difficult for an endov ascular repair. He also could consider open repair because of the size and the high probability of r upture of this aneurysm. If indeed his heart and lungs are good, as the patient states, he could pro bably tolerate that surgery despite his Parkinson's limitations. PLAN: Review the AAA with Interventional Radiology and further review his medical status with [facility]. He would need cardiac clearance and probable pulmonary function tests. /[id number]/MODL
[2018-02-17] MEDS: CARBIDOPA/LEVODOPA 25 MG/100 MG TAB PO SCH ×5 (05:21→21:56)
[2018-02-17 05:57] LABS: PLATELET COUNT 168 10^3/uL (150-400)
[2018-02-17] MEDS: AZITHROMYCIN IV 500 MG in NS 250 ML IV SCH (08:40)
[2018-02-17] MEDS: PANTOPRAZOLE SODIUM 40 MG TAB PO SCH (10:01)
[2018-02-17] MEDS: CHOLECALCIFEROL VIT D3 1,000 UNITS TAB PO SCH (10:01)
[2018-02-17] MEDS: CYANO/VITAMIN B12 1000 MCG TAB PO SCH (10:02)
--- NOTE | 2018-02-17 11:36 | HOSPPROG ---
Hospitalist Progress Note Assessment/Plan: 82yo M with Parkinson's with recent R humerus fracture brought in for weakness incidentally found to have large AAA. 1. 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 Fortunately asymptomatic and without e/o dissection or vascular compromise. - Dr Ponce consulted, considering endovascular vs open repair - Goal SBP<140, using hydralazine PRN for this 2. Pre-operative risk assessment: Borderline low-intermediate risk of major cardiac event per RCRI (0.9%) and Collins (1%) stratification tools. He has no known prior coronary disease. His functional status is rather severely limited ( cannot reach 4 METS) due to his Parkinson's. Additionally, concerning to me are this vague chest pain as well as inferior Q waves on his ECG. - He has been ruled out for ACS - TTE 06/2017 without significant valvular disease - Telemetry without significant arrhythmias - Ordered further stratification with pharmacologic stress with MPI - Agree with PFTs given smoking history 3. RLL pneumonia: Suspect related to atelectasis with recent fracture. He is on room air. - Continue ceftriaxone, azithromycin 4. Parkinson's: Followed by Marilee Wesley. Continue home meds. 5. Pulmonary hypertension: RVSP estimated at 48mmHg on last echo. Will need to monitor volume status and BP closely. 6. H/o etoh abuse: Has significantly cut down. Low risk for withdrawal. 7. Thrombocytopenia: Chronic, likely related to etoh. VTE ppx: SCDs, no pharmacologic ppx with aneurysm Code: full Dispo: Remain inpatient for management of AAA Subjective: Sleepy this morning. Reports having some episodes of vague chest pain while walking over last few weeks. He is unsure if this worsened with recent humerus fracture. Spoke with his over the phone. His functional status is pretty limited. At most he may walk down driveway (30-40 feet), often times needing to stop. No recent syncope. Objective: Vital Signs Temp Pulse Resp BP Pulse Ox 36.6 C 69 18 134/74 H 90 L 02/17/18 08:00 02/17/18 08:00 02/17/18 08:00 02/17/18 08:00 02/17/18 08:00 Microbiology 02/16/18 15:30 Respiratory Panel (PCR) - Final Nasal, Sinus - Swab No Organism Detected By Pcr Laboratory Results 02/17/18 04:13 02/17/18 04:13 02/16/18 02/17/18 02/18/18 05:59 05:59 05:59 Intake Total 350 Output Total 150 Balance 200 PT 15.9 SEC (12.0-15.0) H 02/16/18 15:15 INR 1.25 (0.83-1.16) H 02/16/18 15:15 - Physical Exam Constitutional: no apparent distress, appears nourished, not in pain Eyes: PERRL, anicteric sclera, EOMI Ears, Nose, Mouth, Throat: moist mucous membranes, hearing normal, ears appear normal, no oral mucosal ulcers Cardiovascular: regular rate and rhythym, no murmur, rub, or gallop, other ( pulsatile abdominal mass), No systolic murmur, No JVD, No edema Respiratory: no respiratory distress, no rales or rhonchi, clear to auscultation Gastrointestinal: normoactive bowel sounds, soft, non-tender abdomen, no palpable masses Genitourinary: no bladder fullness, no bladder tenderness, no renal bruits Skin: no rashes or abrasions, no fluctuance, no induration Musculoskeletal: other (Right arm in sling) Neurologic: AAOx3, sensation intact bilaterally Psychiatric: interacting appropriately, not anxious, not encephalopathic, thought process linear ICD10 Worksheet Patient Problems: Problems Problem Status Onset Chest pain Acute Fracture, humerus closed Acute Pneumonia Acute Closed right hip fracture Acute Influenza A Acute Skin tear of left hand without complication Acute Sprain of right shoulder Acute
--- NOTE | 2018-02-17 12:55 | CPEKG ---
Test Reason : OPEN Blood Pressure : / mmHG Vent. Rate : 072 BPM Atrial Rate : 072 BPM P-R Int : 159 ms QRS Dur : 087 ms QT Int : 414 ms P-R-T Axes : 054 -40 015 degrees QTc Int : 454 ms Sinus rhythm Inferior infarct, old No significant change from February 16, 2018 Confirmed by Charles Smith ([id number]) on 02/17/2018 12:55:35 PM Referred By: Confirmed By:Charles Smith
[2018-02-17] MEDS: ACETAMINOPHEN 325 MG TAB PO PRN (15:50)
[2018-02-18] MEDS: CARBIDOPA/LEVODOPA 25 MG/100 MG TAB PO SCH ×5 (05:57→22:21)
[2018-02-18] MEDS: PANTOPRAZOLE SODIUM 40 MG TAB PO SCH (08:59)
[2018-02-18] MEDS: CYANO/VITAMIN B12 1000 MCG TAB PO SCH (08:59)
[2018-02-18] MEDS: CHOLECALCIFEROL VIT D3 1,000 UNITS TAB PO SCH (09:00)
--- NOTE | 2018-02-18 09:14 | SOAPPROG ---
SOAP Progress Note Assessment/Plan: Assessment: 82 y/o M with hx of Parkinson's and recent R humerus fracture, incidentally found to have 8cm infrarenal AAA Pneumonia: on iv abx S: Sleepy. No complaints. O: Somnolent, but arousable Afebrile RRR No increased WOB Abdomen: soft, nontender, pulsatile mass in upper abdomen Extremities: faint pedal pulses Plan: Pt will need endovascular vs. open AAA repair. Pt to get pharmacologic stress test with MPI and PFTs. 02/18/18 09:10 Objective: Vital Signs Temp Pulse Resp BP Pulse Ox 36.8 C 63 18 122/70 H 90 L 02/18/18 07:34 02/18/18 07:34 02/18/18 07:34 02/18/18 07:34 02/18/18 07:34 Laboratory Results 02/18/18 04:23 02/18/18 04:23 02/17/18 02/18/18 02/19/18 05:59 05:59 05:59 Intake Total 350 200 Output Total 150 Balance 200 200 PT 15.9 SEC (12.0-15.0) H 02/16/18 15:15 INR 1.25 (0.83-1.16) H 02/16/18 15:15 ICD10 Worksheet Patient Problems: Problems Problem Status Onset Chest pain Acute Fracture, humerus closed Acute Pneumonia Acute Closed right hip fracture Acute Influenza A Acute Skin tear of left hand without complication Acute Sprain of right shoulder Acute
--- NOTE | 2018-02-18 09:54 | HOSPPROG ---
Hospitalist Progress Note Assessment/Plan: 82yo M with Parkinson's with recent R humerus fracture brought in for weakness incidentally found to have large AAA. 1. 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 Fortunately asymptomatic and without e/o dissection or vascular compromise. - Dr Ponce consulted, considering endovascular vs open repair - Goal SBP<140, using hydralazine PRN for this 2. Pre-operative risk assessment: Borderline low-intermediate risk of major cardiac event per RCRI (0.9%) and Collins (1%) stratification tools. He has no known prior coronary disease. His functional status is rather severely limited ( cannot reach 4 METS) due to his Parkinson's. Additionally, concerning to me are this vague chest pain as well as inferior Q waves on his ECG. - He has been ruled out for ACS - TTE 06/2017 without significant valvular disease - Telemetry without significant arrhythmias - Pharmacologic stress with MPI scheduled for this AM - Needs PFTs 3. RLL pneumonia: He is on room air. RVP and blood cultures negative. - Continue ceftriaxone, azithromycin 4. Parkinson's: Followed by Marilee Wesley (neuro). Continue home meds. 5. Pulmonary hypertension: RVSP estimated at 48mmHg on last echo. Will need to monitor volume status and BP in palma-op setting. 6. H/o etoh abuse: Has significantly cut down. Low risk for withdrawal and none currently. 7. Thrombocytopenia: Chronic, likely related to etoh. VTE ppx: SCDs, no pharmacologic ppx with aneurysm Code: full Dispo: Remain inpatient for management of AAA Subjective: Feeling pretty good. No abdominal or back pain. Slight dizziness. No chest pain or shortness of breath. Occasional pain in right arm when rolled. Objective: Vital Signs Temp Pulse Resp BP Pulse Ox 36.8 C 63 18 122/70 H 90 L 02/18/18 07:34 02/18/18 07:34 02/18/18 07:34 02/18/18 07:34 02/18/18 07:34 Laboratory Results 02/18/18 04:23 02/18/18 04:23 02/17/18 02/18/18 02/19/18 05:59 05:59 05:59 Intake Total 350 200 Output Total 150 Balance 200 200 PT 15.9 SEC (12.0-15.0) H 02/16/18 15:15 INR 1.25 (0.83-1.16) H 02/16/18 15:15 - Physical Exam Constitutional: no apparent distress, appears nourished, not in pain Eyes: PERRL, anicteric sclera, EOMI, other (right palma-orbital bruising) Ears, Nose, Mouth, Throat: moist mucous membranes, hearing normal, ears appear normal, no oral mucosal ulcers Cardiovascular: regular rate and rhythym, no murmur, rub, or gallop, other ( pulsatile abdominal mass), No JVD, No edema Respiratory: no respiratory distress, no rales or rhonchi, clear to auscultation Gastrointestinal: normoactive bowel sounds, soft, non-tender abdomen, no palpable masses Genitourinary: no bladder fullness, no bladder tenderness, no renal bruits Skin: no rashes or abrasions, no fluctuance, no induration Musculoskeletal: full muscle strength, no muscle tenderness, normal joint ROM, other (right arm in sling) Neurologic: AAOx3, sensation intact bilaterally Psychiatric: interacting appropriately, not anxious, not encephalopathic, thought process linear ICD10 Worksheet Patient Problems: Problems Problem Status Onset Chest pain Acute Fracture, humerus closed Acute Pneumonia Acute Closed right hip fracture Acute Influenza A Acute Skin tear of left hand without complication Acute Sprain of right shoulder Acute
[2018-02-18] MEDS ORDERED: REGADENOSON 0.4 MG/5 ML SYR IVP ONE (10:11)
[2018-02-18] MEDS: AZITHROMYCIN IV 500 MG in NS 250 ML IV SCH (11:41)
[2018-02-18] MEDS: ACETAMINOPHEN 325 MG TAB PO PRN (11:41)
--- NOTE | 2018-02-18 12:24 | PDCARST ---
CAR Stress Test Results Type of Stress Test: Lexiscan MPI Indication: preop Description of Procedure: After informed consent was obtained, pt was established to ECG, blood pressure, HR and oximetry monitoring. STRESS EKG AND HEMODYNAMIC DATA. Resting heart rate: 60 BPM. Resting ECG: SR with low voltage. Resting blood pressure: 100/60 mmHg. O2 saturation at rest: 92%. Peak heart rate: no change. Peak blood pressure: 92/60 mmHg. Arrhythmias : none. Symptoms: The patient experienced no typical symptoms of angina during stress or recovery. . Stress/Infusion ECG: No change in rhythm with no significant ST/T wave changes. Stress/infusion O2 saturation: 88% Impression: No significant symptoms with Lexiscan infusion. Hypotension to 74/ 50 with infusion that improved by recovery. Conclusion: Await nuclear images.
--- NOTE | 2018-02-18 13:11 | ASMTCMCOM ---
CM Note CM Note Notes: Pt is a 82 y/o man admitted for generalized weakness. Pt has a hx of parkinsons and recent humerus fracture. PT is recommending SNF. CM met w/ pt, and daughter for dispo planning. and daughter would like a referral made to [facility]. Pt has been there in the past and had a good experience. Referral sent. Non-triggering pasrr completed. CM to follow. Plan: SNF Date Signed: 02/18/2018 01:10 PM Electronically Signed By:DAMASO Coates
[2018-02-19] MEDS: hydrALAZINE 20 MG/ML VIAL IVP PRN ×3 (04:38→21:32)
[2018-02-19] MEDS: CARBIDOPA/LEVODOPA 25 MG/100 MG TAB PO SCH ×5 (06:01→21:23)
--- NOTE | 2018-02-19 08:13 | SOAPPROG ---
SOAP Progress Note Assessment/Plan: Assessment: 82 y/o M with hx of Parkinson's and recent R humerus fracture, incidentally found to have 8cm infrarenal AAA Pneumonia: resolving on iv abx S: Sleepy. No complaints. O: Alert Afebrile RRR No increased WOB Abdomen: soft, nontender, pulsatile mass in upper abdomen Extremities: faint pedal pulses Plan: Pt is candidate for endovascular repair. Will likely have procedure as outpt. 02/19/18 08:12 Objective: Vital Signs Temp Pulse Resp BP Pulse Ox 36.6 C 65 24 H 142/75 H 92 02/19/18 07:37 02/19/18 07:37 02/19/18 07:37 02/19/18 07:37 02/19/18 07:37 Laboratory Results 02/18/18 04:23 02/18/18 04:23 02/18/18 02/19/18 02/20/18 05:59 05:59 05:59 Intake Total 200 800 Output Total 750 Balance 200 50 PT 15.9 SEC (12.0-15.0) H 02/16/18 15:15 INR 1.25 (0.83-1.16) H 02/16/18 15:15 ICD10 Worksheet Patient Problems: Problems Problem Status Onset Chest pain Acute Fracture, humerus closed Acute Pneumonia Acute chronic disease mgmt/transitional care Acute Closed right hip fracture Acute Influenza A Acute Skin tear of left hand without complication Acute Sprain of right shoulder Acute
[2018-02-19] MEDS: PANTOPRAZOLE SODIUM 40 MG TAB PO SCH (08:50)
[2018-02-19] MEDS: CYANO/VITAMIN B12 1000 MCG TAB PO SCH (08:50)
[2018-02-19] MEDS: CHOLECALCIFEROL VIT D3 1,000 UNITS TAB PO SCH (08:50)
[2018-02-19] MEDS: AZITHROMYCIN IV 500 MG in NS 250 ML IV SCH (08:50)
--- NOTE | 2018-02-19 14:19 | WOCRNPDOC ---
WOCRN Advanced Assessment Note - Skin Integrity Problem, Advanced Assess Left Gluteal Cleft Pressure Injury Dressing Type: Mepilex Border Dressing Description: Clean/Dry, Intact Exudate Amount: None Integumentary Issue Intervention: Visualized Under Dressing Juany Wound Tissue: Erythema, Non-blanching Juany Wound Swelling: Mild Wound Bed Color: Red Site Measurement - Head-to-Toe Length X Width X Depth (cm): 2.5x3.4x scar overall. largest 1.2x1.4, all red areas within 3mm of each other and counted as one wound Pressure Injury Stage: Stage 2 Skin Integrity Problem Comment: Present on admission pressure injury to left ischium that is scarring over. Pressure injury is at least stage 2. Wounds have scarred over but are still red, with no open wound at this time. Patient has history of hip fracture and parkinson's, and currently has a right humerus fracture. Education provided to patient re: need to offload, reposition in chair and in bed, nutrition, moisture management, and ambulation when able. RN Deysi and RADIOLOGY TRANSPORTER Zuleyma in room for care. Wound care will not follow. Please reconsult PRN if wound worsens or reopens.
--- NOTE | 2018-02-19 18:34 | HOSPPROG ---
Hospitalist Progress Note Assessment/Plan: The patient is a 82-year-old male with PMH Parkinson's disease, alcohol abuse who was admitted for large AAA, right lower lobe pneumonia. This patient is new to me. Reviewed patient's chart/records for this visit. ASSESSMENT/PLAN: AAA Generalized weakness Acute alcohol withdrawal PNA vs atelectasis Parkinson's disease Acute humerus fracture, in sling Urinary/bowel incontinence Pulm HTN Thrombocytopenia, stable Anemia, stable -add clonidine to help w/ HTN, tachy, EtOH withdrawal. -PT/OT/ISU. -IV antibiotics - day 3. May DC or switch to po tomorrow. -AAA repair to be done as outpatient after other medical issues have resolved. -FU blood Cx - prelim negative. -Continue home meds. -Check AM labs. -Request records from [facility] regarding arm fracture -- concerned about non- op rec, since it appears to be displaced. VTE prophylaxis: SCDs. Add Lovenox. Code Status: Full code Status: Inpatient for greater than 2 midnight stay. Disposition: Med surge with discharge anticipated to snf facility in the next few days ____ SUBJECTIVE: Today the patient feels tremulous and weak. He is very concerned about his truck, which is parked outside a local bar and contains all of his stools. He really wants to go retrieve his truck tomorrow morning. Per RN, patient is unable to walk and requires 2 person assist. OBJECTIVE: Physical Exam: General: The patient is a disheveled male who is alert and in no acute distress. Smells of urine. HEENT: normocephalic, extraocular movements intact, conjunctivae clear. Mucous membranes moist. Neck: trachea midline, no visible masses. Abd: soft and nondistended. Musculoskeletal: Normal muscle tone/bulk. Neuro: cranial nerves II XII grossly intact. Intact gross motor and sensory function. Psych: Appropriate mood and flat affect. Stuttering, tremulous speech. Skin: No pallor. No petechiae. Heme/lymph: No peripheral edema at bilateral lower extremities. Labs/Imaging/Other Tests: Personally reviewed/interpreted. CXR - bibasilar airspace considation vs atelectasis. Stress test cardiac - no acute ischemia. Fixed defect noted. CT chest: 1. Right lower lobe pneumonia. Recommend continued radiographic surveillance until complete resolution. 2. No evidence of acute pulmonary embolism. 3. Comminuted, displaced proximal right humeral fracture. Objective: Vital Signs Temp Pulse Resp BP Pulse Ox 36.6 C 63 22 H 112/71 94 02/19/18 15:56 02/19/18 15:56 02/19/18 15:56 02/19/18 15:56 02/19/18 15:56 Laboratory Results 02/18/18 04:23 02/18/18 04:23 02/18/18 02/19/18 02/20/18 05:59 05:59 05:59 Intake Total 200 800 Output Total 750 Balance 200 50 PT 15.9 SEC (12.0-15.0) H 02/16/18 15:15 INR 1.25 (0.83-1.16) H 02/16/18 15:15 - Time Spent With Patient Time Spent with Patient: greater than 35 minutes Time Spent with Patient: Greater than 35 minutes spent on this patients care, greater than 50% of time spent counseling, educating, and coordinating care regarding the above mentioned plan. ICD10 Worksheet Patient Problems: Problems Problem Status Onset Chest pain Acute Fracture, humerus closed Acute Pneumonia Acute chronic disease mgmt/transitional care Acute Closed right hip fracture Acute Influenza A Acute Skin tear of left hand without complication Acute Sprain of right shoulder Acute
[2018-02-19] MEDS: ACETAMINOPHEN 325 MG TAB PO PRN (23:51)
[2018-02-20] MEDS: oxyCODONE IR 5 MG TAB PO PRN ×2 (02:44→23:09)
[2018-02-20] MEDS: hydrALAZINE 20 MG/ML VIAL IVP PRN (04:38)
[2018-02-20] MEDS: CARBIDOPA/LEVODOPA 25 MG/100 MG TAB PO SCH ×6 (04:54→23:24)
[2018-02-20 04:56] LABS: PLATELET COUNT 207 10^3/uL (150-400)
[2018-02-20] MEDS: CHOLECALCIFEROL VIT D3 1,000 UNITS TAB PO SCH (08:21)
[2018-02-20] MEDS: CYANO/VITAMIN B12 1000 MCG TAB PO SCH (08:21)
[2018-02-20] MEDS: PANTOPRAZOLE SODIUM 40 MG TAB PO SCH (08:21)
[2018-02-20] MEDS ORDERED: LR 1,000 ML IV ONE (09:11)
--- NOTE | 2018-02-20 09:58 | SOAPPROG ---
SOASHANTI Progress Note Assessment/Plan: Assessment: 82 y/o M with hx of Parkinson's and recent R humerus fracture, incidentally found to have 8cm infrarenal AAA Pneumonia: resolving on iv abx S: Sleepy. No complaints. O: Alert Afebrile RRR No increased WOB Abdomen: soft, nontender, pulsatile mass in upper abdomen Extremities: faint pedal pulses Plan: Pt is candidate for endovascular repair. Dr. Drake would like to do procedure today. Pt wants to discuss with his family prior to agreeing to procedure. 02/20/18 09:57 Objective: Vital Signs Temp Pulse Resp BP Pulse Ox 36.6 C 69 18 124/75 H 92 02/20/18 08:00 02/20/18 08:00 02/20/18 08:00 02/20/18 08:00 02/20/18 08:00 Laboratory Results 02/20/18 04:18 02/20/18 04:18 02/19/18 02/20/18 02/21/18 05:59 05:59 05:59 Intake Total 800 Output Total 750 Balance 50 PT 15.9 SEC (12.0-15.0) H 02/16/18 15:15 INR 1.25 (0.83-1.16) H 02/16/18 15:15 ICD10 Worksheet Patient Problems: Problems Problem Status Onset Chest pain Acute Fracture, humerus closed Acute Pneumonia Acute chronic disease mgmt/transitional care Acute Closed right hip fracture Acute Influenza A Acute Skin tear of left hand without complication Acute Sprain of right shoulder Acute
[2018-02-20 10:51] LABS: INR 1.23 (0.83-1.16); PROTIME(PATIENT) 15.7 SEC (12.0-15.0)
[2018-02-20] MEDS: AZITHROMYCIN IV 500 MG in NS 250 ML IV SCH (10:51)
--- NOTE | 2018-02-20 12:51 | HOSPPROG ---
Hospitalist Progress Note Assessment/Plan: The patient is a 82-year-old male with PMH Parkinson's disease, alcohol abuse who was admitted for large AAA, right lower lobe pneumonia. ASSESSMENT/PLAN: AAA PNA Generalized weakness Parkinson's disease w/ tremor Acute humerus fracture, in sling (non-op mgmt) Urinary/bowel incontinence Pulm HTN Thrombocytopenia, stable Anemia, stable -IV antibiotics - day 4. -AAA endovascular repair w/ IR today. -FU blood Cx - prelim negative. -PT/OT/ISU. -Continue home meds. -Check AM labs. -Requested records from [facility] regarding arm fracture -- concerned about non- op rec, since per earlier hospital report it is displaced. VTE prophylaxis: SCDs. Add Lovenox. Code Status: Full code Status: Inpatient for greater than 2 midnight stay. Disposition: Med surge with discharge anticipated to senior care facility in the next few days ____ SUBJECTIVE: Today the patient feels tremulous and weak. 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 OBJECTIVE: Physical Exam: General: The patient is a disheveled male who is alert and in no acute distress. HEENT: normocephalic, extraocular movements intact, conjunctivae clear. Mucous membranes moist. Neck: trachea midline, no visible masses. Abd: soft and nondistended. Musculoskeletal: Normal muscle tone/bulk. Neuro: cranial nerves II XII grossly intact. Intact gross motor and sensory function. +fine resting tremor. Psych: Appropriate mood and flat affect. Stuttering, tremulous speech. Skin: No pallor. No petechiae. Heme/lymph: No peripheral edema at bilateral lower extremities. Labs/Imaging/Other Tests: Personally reviewed/interpreted. CXR - bibasilar airspace considation vs atelectasis. Stress test cardiac - no acute ischemia. Fixed defect noted. CT chest: 1. Right lower lobe pneumonia. Recommend continued radiographic surveillance until complete resolution. 2. No evidence of acute pulmonary embolism. 3. Comminuted, displaced proximal right humeral fracture. Objective: Vital Signs Temp Pulse Resp BP Pulse Ox 36.6 C 69 18 124/75 H 92 02/20/18 08:00 02/20/18 08:00 02/20/18 08:00 02/20/18 08:00 11/30/18 08:00 Laboratory Results 02/20/18 04:18 02/20/18 04:18 02/19/18 02/20/18 02/21/18 05:59 05:59 05:59 Intake Total 800 Output Total 750 Balance 50 PT 15.7 SEC (12.0-15.0) H 02/20/18 04:18 INR 1.23 (0.83-1.16) H 02/20/18 04:18 - Time Spent With Patient Time Spent with Patient: greater than 35 minutes Time Spent with Patient: Greater than 35 minutes spent on this patients care, greater than 50% of time spent counseling, educating, and coordinating care regarding the above mentioned plan. ICD10 Worksheet Patient Problems: Problems Problem Status Onset Chest pain Acute Fracture, humerus closed Acute Pneumonia Acute chronic disease mgmt/transitional care Acute Closed right hip fracture Acute Influenza A Acute Skin tear of left hand without complication Acute Sprain of right shoulder Acute
--- NOTE | 2018-02-20 14:02 | ASMTCMCOM ---
CM Note CM Note Notes: Pt to have procedure on aortic anyeurism then transfer to ICU and likely back up to med/surg. DC Plan: SNF/[facility] Date Signed: 02/20/2018 02:01 PM Electronically Signed By:Myesha Arauz RN
[2018-02-20] MEDS ORDERED: IOPAMIDOL (ISOVUE-300) 100 ML BTL ONE ×3 (14:28→19:49)
[2018-02-20] MEDS ORDERED: BUPIVACAINE 0.5% 30 ML SDV ONE (14:46)
[2018-02-20] MEDS ORDERED: PAPAVERINE HCL 60 MG/2 ML SDV ONE (14:46)
[2018-02-20] MEDS ORDERED: THROMBIN (BOVINE) 20,000 UNIT SPRAY TP ONE (14:46)
[2018-02-20] MEDS ORDERED: IOTHALAMATE MEG (CONRAY) 50 ML VIAL IV ONE (14:47)
--- NOTE | 2018-02-20 14:47 | PDANEPAE ---
ANE History of Present Illness IR AAA repair ANE Past Medical History - Cardiovascular History Hx Hypertension: Yes Hx Arrhythmias: No Hx Coronary Artery / Peripheral Vascular Disease: Yes Hx CHF / Valvular Disease: No Hx Palpitations: No - Pulmonary History Hx COPD: No Hx Asthma/Reactive Airway Disease: No Hx Recent Upper Respiratory Infection: Yes Hx Oxygen in Use at Home: No Hx Sleep Apnea: No - Neurologic History Hx Cerebrovascular Accident: No Hx Seizures: No Hx Dementia: No Neurologic History Comment: parkinson's - Endocrine History Hx Diabetes: No Hypothyroid: No Hyperthyroid: No Obesity: no - Renal History Hx Renal Disorders: No - Liver History Hx Hepatic Disorders: No - GI History GERD: mild (symptom controlled) - Chronic Pain History Chronic Pain: No ANE Review of Systems Review of Systems: - Exercise capacity Exercise capacity: <4 METS ANE Patient History - Allergies Allergies/Adverse Reactions: No Known Allergies Allergy (Verified 11/18/17 15:55) - Home Medications Home Medications: Cholecalciferol Vit D3 [Vitamin D3 (*)] 1,000 units PO DAILY 07/14/17 [Last Taken 02/15/18] Cyanocobalamin [Vitamin B12 (*)] 1,000 mcg PO DAILY 07/14/17 [Last Taken ] Omeprazole 20 mg PO DAILY 07/14/17 [Last Taken 02/15/18] Carbidopa/Levodopa 25/100Mg [Sinemet 25/100 MG (*)] 2 tab PO 06,10,14,18,22 [Last Taken 02/16/18 12:00] Cyclobenzaprine [Flexeril 10 MG (*)] 10 mg PO DAILY PRN 02/16/18 [Last Taken 21:00] oxyCODONE IR [Oxycodone Ir (*)] 5 mg PO TID PRN 02/16/18 [Last Taken Unknown] - NPO status NPO Status: no food or drink >8 hours - Smoking Hx Smoking Status: Former smoker ANE Labs/Vital Signs - Labs Result Diagrams: 02/20/18 04:18 02/20/18 04:18 - Vital Signs Blood Pressure: 114/67 Heart Rate: 65 Respiratory Rate: 18 O2 Sat (%): 91 Height: 177.8 cm Weight: 65 kg ANE Physical Exam - Airway Mallampati Score: Class 2 Mouth exam: normal dental/mouth exam - Pulmonary Pulmonary: no respiratory distress - Cardiovascular Cardiovascular: regular rate and rhythym - ASA Status ASA Status: III ANE Anesthesia Plan Anesthesia Plan: GA w LMA
[2018-02-20] MEDS ORDERED: ROCURONIUM 50 MG/5 ML VIAL ONE ×2 (15:22→16:46)
[2018-02-20] MEDS ORDERED: LIDOCAINE 2% 5 ML SDV ONE (15:22)
[2018-02-20] MEDS ORDERED: PROPOFOL 200 MG/20 ML VIAL ONE (15:23)
[2018-02-20] MEDS ORDERED: fentaNYL 100 MCG/2 ML INJ ONE ×2 (15:23→19:56)
[2018-02-20] MEDS ORDERED: HEPARIN 10,000 UNIT/10 ML MDV (1,000 UNIT/ML) ONE (16:34)
[2018-02-20] MEDS ORDERED: ROCURONIUM 100 MG/10 ML VIAL ONE (19:33)
[2018-02-20] MEDS ORDERED: PROTAMINE SULFATE 50 MG/5 ML VIAL IVP ONE (19:44)
--- NOTE | 2018-02-20 19:57 | PDRADPN ---
Radiology Procedure Note Date of Procedure: 02/20/18 Radiologist: Tequila Drake Anesthesia: GET(General Endotracheal) Pre-op Diagnosis: AAA Post-op Diagnosis: SAME Indication: 8CM ANEURYSM Procedure: STENTGRAFT WITH ENDOANCHORS Finding(s): TWO PIECE DEVICE DEPLOYED. 4 ANCHORS DEPLOYED. Inf/Abcess present in the surg proc area at time of surgery?: No
[2018-02-20] MEDS ORDERED: NS 1,000 ML IV SCH (20:00)
[2018-02-20] MEDS ORDERED: ALBUTEROL 3 ML DEYVIAL IH PRN (20:20)
[2018-02-20] MEDS ORDERED: fentaNYL 100 MCG/2 ML INJ IVP PRN (20:20)
[2018-02-20] MEDS ORDERED: NALOXONE HCL 0.4 MG/ML INJ IVP PRN (20:20)
[2018-02-20] MEDS ORDERED: ONDANSETRON 4 MG/2 ML VIAL IVP PRN (20:20)
--- NOTE | 2018-02-20 20:20 | POSTANESTH ---
Post Anesthetic Evaluation Cardiovascular Status: Normal, Stable Respiratory Status: Normal, Stable Level of Consciousness/Mental Status: Mildly Sleepy, Arousable Pain Control: Adequate, Prn Tx Ordered Nausea/Vomiting Control: Adequate, Prn Tx Ordered Complications Possibly Related to Anesthesia: None Noted
[2018-02-21 04:59] LABS: PLATELET COUNT 196 10^3/uL (150-400)
[2018-02-21] MEDS: PANTOPRAZOLE SODIUM 40 MG TAB PO SCH (08:13)
[2018-02-21] MEDS: CHOLECALCIFEROL VIT D3 1,000 UNITS TAB PO SCH (08:13)
[2018-02-21] MEDS: CYANO/VITAMIN B12 1000 MCG TAB PO SCH (08:13)
[2018-02-21] MEDS: CARBIDOPA/LEVODOPA 25 MG/100 MG TAB PO SCH ×4 (08:31→17:00)
[2018-02-21] MEDS: AZITHROMYCIN IV 500 MG in NS 250 ML IV SCH (08:54)
--- NOTE | 2018-02-21 10:57 | HOSPPROG ---
Hospitalist Progress Note Assessment/Plan: * 8cm AAA s/p endovascular stent -doing well * Pneumonia -day #6 Ceftriaxone + azithro -change to PO abx * Parkinson's * Acute humerus fracture -sling, non-operative mgmt Subjective: No new complaints. Objective: Vital Signs Temp Pulse Resp BP Pulse Ox 36.9 C 88 20 119/65 95 02/21/18 09:00 02/21/18 09:00 02/21/18 09:00 02/21/18 09:00 02/21/18 09:00 Laboratory Results 02/21/18 04:40 02/21/18 04:40 02/20/18 02/21/18 02/22/18 05:59 05:59 05:59 Intake Total 912 400 Output Total 1950 Balance -1038 400 PT 15.7 SEC (12.0-15.0) H 02/20/18 04:18 INR 1.23 (0.83-1.16) H 02/20/18 04:18 - Physical Exam Constitutional: no apparent distress, appears nourished, not in pain Cardiovascular: regular rate and rhythym, no murmur, rub, or gallop Respiratory: no respiratory distress, no rales or rhonchi, clear to auscultation Gastrointestinal: normoactive bowel sounds, soft, non-tender abdomen, no palpable masses Skin: no rashes or abrasions, no fluctuance, no induration Neurologic: AAOx3, sensation intact bilaterally Psychiatric: interacting appropriately, not anxious, not encephalopathic, thought process linear ICD10 Worksheet Patient Problems: Problems Problem Status Onset chronic disease mgmt/transitional care Acute Influenza A Acute Skin tear of left hand without complication Acute Sprain of right shoulder Acute Closed right hip fracture Acute Chest pain Acute Pneumonia Acute Fracture, humerus closed Acute
--- NOTE | 2018-02-21 10:58 | SOAPPROG ---
SOAP Progress Note Assessment/Plan: Assessment: STATUS POST ENDOVASCULAR AORTIC REPAIR/COMFORTABLE/ALERT AND ORIENTED WOUNDS LOOK GOOD/PULSES GOOD Plan: DC SAUER/AMBULATING 02/21/18 10:58 Objective: Vital Signs Temp Pulse Resp BP Pulse Ox 36.9 C 88 20 119/65 95 02/21/18 09:00 02/21/18 09:00 02/21/18 09:00 02/21/18 09:00 02/21/18 09:00 Laboratory Results 02/21/18 04:40 02/21/18 04:40 02/20/18 02/21/18 02/22/18 05:59 05:59 05:59 Intake Total 912 400 Output Total 1950 Balance -1038 400 PT 15.7 SEC (12.0-15.0) H 02/20/18 04:18 INR 1.23 (0.83-1.16) H 02/20/18 04:18 ICD10 Worksheet Patient Problems: Problems Problem Status Onset Chest pain Acute Fracture, humerus closed Acute Pneumonia Acute chronic disease [facility]/transitional care Acute Closed right hip fracture Acute Influenza A Acute Skin tear of left hand without complication Acute Sprain of right shoulder Acute
--- NOTE | 2018-02-21 14:15 | PDIAF ---
- Diagnosis Diagnosis: 8cm AAA, pneumonia Code Status: Full Code - Medication Management Group Home Antibiotic Stop Date: 02/23/18 Discharge Medications: electronically signed and located in the Home Medication List. - Orders Services needed: Physical Therapy, Occupational Therapy Isolation Type: None Diet Texture: Regular Texture Diet, Thin Liquids, Meds Whole w/Liquids Additional Instructions: Wound care: Bedsore (Pressure injury) care: You have a stage 2 pressure injury (also known as a bedsore) on your buttock. To help heal this wound and avoid further injury please do the followin. Reposition yourself frequently, at least every 15 minutes when sitting. Try to stand for at least 3 min every hour so that the tissues fully reperfuse with blood. We recommend sitting on an air cushion. Please never use a doughnut. 2. When youre in bed, try to rest on your side as much as possible, and change position every two hours (for example, turn or tilt from your right side toward your left).~ If you sleep on a sleep number or medical bed, keep the head of the bed below 30 degrees and keep all pressure off your low back for at least 5 minutes at least every two hours.~ 3. As needed, you may use Calazime, dimethicone moisture barrier cream, or any [id number] diaper rash cream to help prevent or treat a moisture-related rash to your bottom area and buttocks. 4.Please contact [facility] outpatient [facility] for an appointment, at , If your wounds re/open or dont improve, or if you have any further questions or concerns. Elvira Gómez RN Wound Care Team - Follow Up Care Current Providers and Referrals: NONE *PRIMARY CARE P,. [Unknown] - As per Instructions Alex Ponce MD [Medical Doctor] - follow up in 1 week
[2018-02-21 16:26] VITALS: BP 107/62
--- NOTE | 2018-02-22 04:23 | GDS ---
DISCHARGE DIAGNOSES: 1. Pneumonia. 2. An 8 cm abdominal aortic aneurysm, status post endovascular stents. 3. Parkinson's. 4. Acute humerus fracture. HISTORY: The patient is an 82-year-old male, recently sustained an acute humerus fracture, which is in a sling and on nonoperative management. He presented to the hospital with chest pain. CT angiogr am of the chest revealed pneumonia. Incidentally noted on his scan was an 8 cm abdominal aortic aneu rysm. It was very large and felt to need urgent intervention due to its massive size. General Surge ry was consulted. In addition to treating his pneumonia, he also went to Interventional Radiology an d had an endovascular stent placed semi-urgently for this massive abdominal aortic aneurysm. He did well with the procedure. He has completed 6/7 days of antibiotics at discharge. He is transferring to senior care facility for further rehabilitation. DISCHARGE MEDICATIONS: 1. Please see computer record for full detailed list. 2. Augmentin 875 mg p.o. b.i.d. for 2 more days. ADDITIONAL DISCHARGE INSTRUCTIONS: 1. Follow up with Dr. Alex Ponce in 1 week. 2. Wound care instructions for pressure injury. Please refer to chart. Greater than 30 minutes' time was spent arranging this discharge. Patient was seen and examined by marlon mullen on the day of discharge. /[id number]/MODL
--- NOTE | 2018-02-25 16:55 | GOP ---
DATE OF OPERATION: 02/20/2018 SURGEON: Alex Ponce MD PREOPERATIVE DIAGNOSIS: Infrarenal abdominal aortic aneurysm. POSTOPERATIVE DIAGNOSIS: Infrarenal abdominal aortic aneurysm. PROCEDURE PERFORMED: 1. Bilateral femoral artery exposures for endovascular aneurysm repair. 2. Bilateral femoral artery repairs. FINDINGS: Patient was found to have reasonably soft common femoral arteries for stent placement with good pulses postoperatively. DESCRIPTION OF PROCEDURE: The patient was taken to the operating room where he received satisfactory general endotracheal anesthesia. He was placed in the supine position, prepped and draped in usual sterile fashion. Bilateral vertical groin incisions were made, carried through the subcutaneous tissue and superficial fascia. The common femoral, superficial femoral, and profunda femoris arteries and several other br anches were dissected free and controlled with vessel loops. After adequate exposure was achieved on both sides, the case was turned over to Dr. Drake for stent placement, and after that was completed, w paz returned for wound closure. The stents were carefully removed, and then, the arteriotomies were re paired with 5-0 Prolene mattress sutures. Flow was first re-established through the profunda femoris and then through the superficial femoral artery. Both sides were handled similarly. Heparin was then reversed with protamine. Hemostasis was assured. The wounds were closed in 2 layer s using 2-0 Vicryl for the fascia and subcutaneous tissue with 3-0 Vicryl. The skin was closed with skin darshana. He tolerated the procedure well. Blood loss was less than 50 cc from the procedure, a nd there were no complications. Taken to recovery room in good condition. /[id number]/MODL
== END 2018-02-21 17:07 | DRG 270 ==
LOC: EDUNIT# → F3E 13:44 → F2N 02-20 20:25 → F3E 02-21 14:21
PROVIDERS: ADMIT Internal Medicine; ATTEND Internal Medicine
PROC: 04V00DZ Restriction of Abdominal Aorta with Intraluminal Device, Open Approach (ICD-10-PCS; principal; 2018-02-20 14:00)
DX: I71.4 Abdominal aortic aneurysm, without rupture (principal); J18.9 Pneumonia, unspecified organism; G20 Parkinson's disease; I27.20 Pulmonary hypertension, unspecified; D69.6 Thrombocytopenia, unspecified; S42.201D Unspecified fracture of upper end of right humerus, subsequent encounter for fracture with routine healing; Z96.649 Presence of unspecified artificial hip joint; Z86.718 Personal history of other venous thrombosis and embolism; Z87.891 Personal history of nicotine dependence
CPT/HCPCS: 84484-PO; 92610-GN; 96365; 97116-GP; 97162-GP; 97166-GO; 97530-GP; 97535-GO; A9500; C1769; C1894; G8978-GP-CK; G8979-GP-CJ; G8987-GO-CL; G8988-GO-CJ; G8996-GN-CH; G8997-GN-CH; G8998-GN-CH; J0360; J0456; J0696; J1644; J2440; J2543; J2704; J2720; J2785; J3010; Q9961; Q9967

== ENCOUNTER → 2018-03-04 | Outpatient (CLI) | payer OTHER, MEDICARE | LOC: BMCIMAGING 14:31 | PROVIDERS: ATTEND Physician Assistant | DX: S42.291A Other displaced fracture of upper end of right humerus, initial encounter for closed fracture (principal) ==

== ENCOUNTER → 2018-03-30 | Outpatient (CLI) | payer OTHER, MEDICARE | LOC: BMCIMAGING 15:59 | PROVIDERS: ATTEND Orthopaedic Surgery | DX: S42.231D 3-part fracture of surgical neck of right humerus, subsequent encounter for fracture with routine healing (principal) ==

== ENCOUNTER → 2018-04-07 | Outpatient (CLI) | payer OTHER, MEDICARE | LOC: GIMAGING 15:02 | PROVIDERS: ATTEND Registered Nurse | DX: M25.551 Pain in right hip (principal); Z87.81 Personal history of (healed) traumatic fracture; Z96.641 Presence of right artificial hip joint | CPT/HCPCS: 73502-PO ==

== ENCOUNTER → 2018-05-06 | Outpatient (CLI) | payer OTHER, MEDICARE | LOC: FIMAGING 18:05 | PROVIDERS: ATTEND Internal Medicine | DX: J98.11 Atelectasis (principal); I82.412 Acute embolism and thrombosis of left femoral vein; R60.0 Localized edema ==

== ENCOUNTER → 2018-05-27 | Outpatient (CLI) | payer OTHER, MEDICARE | LOC: GIMAGING 16:12 | PROVIDERS: ATTEND Internal Medicine Critical Care Medicine | DX: J98.6 Disorders of diaphragm (principal) | CPT/HCPCS: 71046-PO ==

== ENCOUNTER → 2018-08-04 | Outpatient (CLI) | payer OTHER, MEDICARE ==
[~2018-08-04] MED LIST: IOPAMIDOL (ISOVUE 370) 100 ML BTL IV ONE
== END ==
LOC: FIMAGING 13:31
PROVIDERS: ATTEND Radiology Diagnostic Radiology
DX: Z09 Encounter for follow-up examination after completed treatment for conditions other than malignant neoplasm (principal); I71.4 Abdominal aortic aneurysm, without rupture; K80.20 Calculus of gallbladder without cholecystitis without obstruction; K44.9 Diaphragmatic hernia without obstruction or gangrene; N28.1 Cyst of kidney, acquired
CPT/HCPCS: 74174; Q9967; 82565-PO